=== PATIENT | female | born 1975 | race African-American/Black ===

== ENCOUNTER 2018-04-01 00:23 | Inpatient (IN) ==
[2018-04-01] MEDS ORDERED: NORCO-5 PO ONE (03:10)
[2018-04-01 03:49] LABS: BASO# 0.06 X1000 (0.0-0.2); BASO% 0.9 % (0.0-0.8); EOS# 0.59 X1000 (0.0-0.7); EOS% 8.9 % (0.0-10.0); HEMATOCRIT 43.3 % (37.0-47.0); HEMOGLOBIN 13.8 g/dL (12.0-16.0); IMM GRAN# 0.02 X1000 (0.0-0.04); IMM GRAN% 0.3 % (0.0-0.5); LYMPH# 2.09 X1000 (1.2-3.4); LYMPH% 31.4 % (20.5-51.1); MCH 28.5 PG (27-31); MCHC 31.9 g/dL (33-37); MCV 89.5 FL (81-99); MONO# 0.84 X1000 (0.11-0.59); MONO% 12.6 % (1.7-9.3); MPV 11.2 FL (7.4-10.4); NEUT# 3.05 X1000 (1.4-6.5); NEUT% 45.9 % (42.2-75.2); PLT 210 X1000 (130-400); RBC 4.84 XMIL (4.2-5.4); RDW 14.1 % (11.5-14.5); WBC 6.65 X1000 (4.8-10.8)
[2018-04-01 03:56] LABS: INR 0.91
[2018-04-01 03:57] LABS: PTT 29.9 Seconds (22.3-41.8)
[2018-04-01 03:59] LABS: D-DIMER 1.89 ug/mLFEU (0.0-0.52)
[2018-04-01 04:18] LABS: AGAP 13; ALB/GLOB RATIO 0.7; ALKALINE PHOSPHATASE 415 U/L (32-104); BUN 8 mg/dL (8-22); CALCIUM 8.8 mg/dL (8.8-10.2); CHLORIDE 106 mmol/L (98-107); COSMO 284; CREATININE 0.6 mg/dL (0.5-0.9); ESTIMATED GFR > 60; GLUCOSE 117 mg/dL (70-104); GOT 104 U/L (10-30); GPT 92 U/L (10-36); POTASSIUM 4.5 mmol/L (3.5-5.1); SODIUM 143 mmol/L (136-145); TCO2 24 mmol/L (25-35); TOTAL BILIRUBIN 0.95 mg/dL (0.20-1.00); TOTAL PROTEIN 9.6 g/dL (6.3-8.3)
[2018-04-01] MEDS ORDERED: ROCEPHIN 1 GM in NS 50 ML IV ONE (05:26)
[2018-04-01] MEDS ORDERED: ZITHROMAX 500 MG/NS 500 MG/250 ML IVPB IV ONE (05:26)
--- NOTE | 2018-04-01 06:11 | PROVIDER DOCUMENTATION ---
HPI-General Adult - General Chief Complaint: Chest Pain Stated Complaint: CHEST PAIN/SOB Time Seen by Provider: 04/01/18 03:00 Source: patient Allergies/Adverse Reactions: Patient Allergies Allergy/AdvReac Type Severity Reaction Status Date / Time No Known Allergies Allergy Verified 03/11/16 18:09 Home Medications: Home Medication List Medication Instructions Recorded Confirmed Last Taken Type Famotidine [Pepcid] 20 mg PO DAILY #20 tablet 03/11/16 04/01/18 11/17/16 Rx 20mg Ibuprofen [Motrin] 800 mg PO Q8H PRN PRN #20 tablet 03/11/16 04/01/18 03/31/18 Rx 800mg Carbamide Peroxide/Sea Water [[facility] 113 ml OT DIRECTED #1 combo..pkg 04/17/16 04/01/18 11/17/16 Rx Ear Wax Cleansing System] 113ml - History of Present Illness -Gen Adult Nature of Presenting Problems: Diffuse L sided CP starting yesterday that is worse with breathing. She also states mild SOB. No cough, body aches, chill or documented fever. No previous such episodes. Review of Systems - Adult - REVIEW OF SYSTEMS - ADULT Constitutional: reports: weight loss (mild, attributes to working nights.). denies: chills, fever, fatique, night sweats Ears, Nose, Mouth & Throat: denies: hearing loss, mouth/dental pain, mouth swelling, hoarseness, throat pain, throat swelling Cardiovascular: reports: no symptoms reported Respiratory: reports: see HPI Gastrointestinal: reports: no symptoms reported Genitourinary: reports: no symptoms reported Musculoskeletal: reports: no symptoms reported Integumentary: reports: no symptoms reported Neurological: reports: no symptoms reported Psychiatric: reports: no symptoms reported Endocrine: reports: no symptoms reported Hematologic/Lymphatic: reports: no symptoms reported Allergic/Immunologic: reports: no symptoms reported Past History - Adult - PAST MEDICAL HISTORY-ADULT Review of Records: reports: Nursing Assessment Review, Social history reviewed & non-contributory. Major Childhood Illnesses: reports: denies history Cardiovascular: reports: denies history Respiratory: reports: denies history Gastrointestinal: reports: denies history Obstetrical/Gynecological: reports: denies history Genitourinary: reports: denies history Musculoskeletal: reports: denies history Neurological: reports: denies history Endocrine/Immune: reports: denies history Other Conditions: reports: denies history - IMMUNIZATION STATUS Childhood Immunizations: See Nurse Assessment Flu Vaccine: See Nurse Assessment - FAMILY HISTORY Family History: reviewed, not pertinent Physical Exam-General - PHYSICAL EXAM-ADULT Initial Vital Signs Reviewed: Yes - CONSTITUTIONAL General Appearance: appears well, alert - EYES Eyes: PERRL/EOMI, pink conjunctivae - HEAD, EARS, NOSE, MOUTH & THROAT HENMT: normocephalic/atraumatic, moist mucous membranes, normal ENT inspection, pharynx normal. negative: pharyngeal erythema, tonsillar exudate - NECK Neck: non-tender, full range of motion, supple - RESPIRATORY Respiratory: chest non-tender, lungs clear, normal breath sounds, no pleuratic chest pain, no respiratory distress, no accessory muscle use - CARDIOVASCULAR Cardiovascular: normal peripheral pulses, regular rate, rhythm, no edema, no JVD - GASTROINTESTINAL (ABDOMEN) Abdominal Exam: normal bowel sounds, non tender, soft - LYMPHATIC Lymphatic: no adenopathy - MUSCULOSKELETAL Back Exam: normal inspection, no CVA tenderness, no vertebral tenderness Extremity: normal range of motion, non-tender, normal gait, no pedal edema, no calf tenderness, normal capillary refill - SKIN Integumentary: normal color, normal turgor, warm/dry - NEUROLOGIC Neurologic: grossly normal - PSYCHIATRIC Psych/Mental Status: normal mood/affect, oriented x 3 Progress - PLAN OF CARE/RESULTS Progress/Plan/Lab Results: Vital Signs - 8 hr 04/01/18 00:27 Temperature 98.0 F Pulse Rate 74 Respiratory Rate 18 Blood Pressure 155/96 O2 Sat by Pulse Oximetry 100 Laboratory Results - last 24 hr 04/01/18 04/01/18 04/01/18 03:15 03:15 03:15 WBC 6.65 RBC 4.84 Hgb 13.8 Hct 43.3 MCV 89.5 MCH 28.5 MCHC 31.9 L RDW Std Deviation 14.1 Plt Count 210 MPV 11.2 H Immature Gran % (Auto) 0.3 Neut % (Auto) 45.9 Lymph % (Auto) 31.4 [place] % (Auto) 12.6 H Eos % (Auto) 8.9 Baso % (Auto) 0.9 H Immature Gran # (Auto) 0.02 Neut # (Auto) 3.05 Lymph # (Auto) 2.09 [place] # (Auto) 0.84 H Eos # (Auto) 0.59 Baso # (Auto) 0.06 PT 13.0 INR 0.91 PTT (Actin FS) 29.9 D-Dimer, Quantitative 1.89 H Sodium 143 Potassium 4.5 Chloride 106 Carbon Dioxide 24 L Anion Gap 13 BUN 8 Creatinine 0.6 Estimated GFR/1.73 m2 > 60 BUN/Creatinine Ratio 13 Glucose 117 H Calculated Osmolality 284 Calcium 8.8 Total Bilirubin 0.95 AST 104 H ALT 92 H Alkaline Phosphatase 415 H Troponin T Total Protein 9.6 H Albumin 4.0 Globulin 5.6 Albumin/Globulin Ratio 0.7 04/01/18 03:15 WBC RBC Hgb Hct MCV MCH MCHC RDW Std Deviation Plt Count MPV Immature Gran % (Auto) Neut % (Auto) Lymph % (Auto) [place] % (Auto) Eos % (Auto) Baso % (Auto) Immature Gran # (Auto) Neut # (Auto) Lymph # (Auto) [place] # (Auto) Eos # (Auto) Baso # (Auto) PT INR PTT (Actin FS) D-Dimer, Quantitative Sodium Potassium Chloride Carbon Dioxide Anion Gap BUN Creatinine Estimated GFR/1.73 m2 BUN/Creatinine Ratio Glucose Calculated Osmolality Calcium Total Bilirubin AST ALT Alkaline Phosphatase Troponin T < 0.010 Total Protein Albumin Globulin Albumin/Globulin Ratio Orders Category Date Time Status CHEST-1 VIEW [RAD] Stat Exams 04/01/18 03:08 Taken CTA [CT ANGIOGRM PULMONARY ARTERIES] [CT] Stat Exams 04/01/18 04:16 Taken CBC WITH DIFF [HEME] Stat Lab 04/01/18 03:15 Completed COMPREHENSIVE METABOLIC PANEL [CHEM] Stat Lab 04/01/18 03:15 Completed D-DIMER [COAG] Stat Lab 04/01/18 03:15 Completed PROTIME WITH INR [COAG] Stat Lab 04/01/18 03:15 Completed PTT [COAG] Stat Lab 04/01/18 03:15 Completed TROPONIN T Stat Lab 04/01/18 03:15 Completed Azithromycin 500 mg/Ns [Zithromax 500 mg/Ns] Med 04/01/18 05:26 Active 500 mg in 250 ml IV NOW CefTRIAXONE [Rocephin] 1 gm Med 04/01/18 05:26 Discontinued 0.9% Sodium Chloride Inj [Ns] 50 ml IV NOW Hydrocodone/APAP 5 mg/325 mg [[place]-5] Med 04/01/18 03:10 Discontinued 1 each PO NOW ONE EKG [EKG] Stat Ther 04/01/18 00:31 Ordered Considerations include but not limited to: malignancy, pna, pulm fibrosis, sarcoidosis. CT reveals what appears to be chronic lung disease as well as B pna. She also has significant adenopathy. Case discussed with Dr Elena who admitted her. She was treated empirically for Community acquired PNA. Result Diagrams: 04/01/18 03:15 04/01/18 03:15 Departure - Departure Date of Disposition Decision: 04/01/18 Time of Disposition Decision: 06:10 DIAGNOSIS: Mediastinal adenopathy Pneumonia Qualifiers: Pneumonia type: due to unspecified organism Laterality: bilateral Lung location : unspecified part of lung Qualified Code(s): J18.9 - Pneumonia, unspecified organism Disposition: ADMITTED INPATIENT 09 Certified Medical Emergency: Emergent Condition: Fair - Critical Care Note This patient required my direct & personal management of CC.: No Attestation - Physician/ SHUKRI Attestation The physician spent face to face time with patient:: Yes Advanced Practice Provider documentation review:: Supervising physician onsite and consulted in the evaluation and care of this patient. The physician did have a face to face encounter with the patient.
--- NOTE | 2018-04-01 06:37 | Diag Imaging Result Doc PS360 ---
EXAM: CT ANGIOGRM PULMONARY ARTERIES HISTORY: SOB, ELEVATED D DIMER TECHNIQUE: CT chest with intravenous contrast. Pulmonary arterial protocol with MIP images. COMPARISON: None. FINDINGS: There are large calcified mediastinal and hilar lymph nodes as well as enlarged calcified axillary nodes. No thoracic aortic aneurysm or dissection. No cardiomegaly. Normal opacification of the pulmonary arteries and their major branches. There is bilateral bronchiectasis. There are infiltrates most prominent in the lower lungs. There may be an underlying cavity in the left lower lobe measuring over 5 cm. There are scattered pulmonary nodules measuring 1.3 cm. Several of these may contain internal calcification. Limited images through the upper abdomen reveal a prominent lymph nodes with calcification. IMPRESSION: 1.No pulmonary emboli 2.Enlarged calcified axillary, mediastinal, hilar, and upper abdominal adenopathy. This is usually due to sarcoidosis or tuberculosis. 3.Bilateral infiltrates with possible necrotizing pneumonia 4.Bronchiectasis 5.Small scattered pulmonary nodules which may contain calcification 6.A preliminary report was given at 5:17 AM. This exam was performed using automated exposure control, adjustment of mA or kV according to patient size, and/or use of iterative reconstruction technique. Electronically signed by Anderson Bella 04/01/2018 6:35 AM
[2018-04-01] MEDS ORDERED: DUONEB (A & A) INH PRN (07:04)
[2018-04-01] MEDS ORDERED: ZOFRAN IV PRN (07:04)
[2018-04-01] MEDS ORDERED: D5 1/2 NS 1,000 ML IV ONE (07:04)
--- NOTE | 2018-04-01 07:09 | Diag Imaging Result Doc PS360 ---
EXAM: CHEST-1 VIEW 04/01/2018 HISTORY: cp TECHNIQUE: AP portable at 0321 COMMENT: There is alveolar opacity in both lower lung gandhi. There are no previous studies. The heart size appears to be within normal limits. There are sclerotic changes in the humeral heads bilaterally suggesting ischemic necrosis. IMPRESSION: Bilateral bronchopneumonia plus minus pulmonary edema. 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 Electronically signed by Orlin Stiles 04/01/2018 7:07 AM
[2018-04-01] MEDS ORDERED: MAXIPIME 1 GM in NS 50 ML IV SCH (07:15)
[2018-04-01] MEDS ORDERED: SODIUM CHLORIDE 0.9% INJ SCH (07:15)
[2018-04-01] MEDS ORDERED: VANCOMYCIN IV PER PHARMACY MISC SCH (07:15)
--- NOTE | 2018-04-01 07:23 | EKG Report ---
Test Performed on : 04/01/2018 00:33:30 AM Test Reason : CP Blood Pressure : / mmHG Vent. Rate : 076 BPM Atrial Rate : 076 BPM P-R Int : 192 ms QRS Dur : 088 ms QT Int : 400 ms P-R-T Axes : 060 083 050 degrees QTc Int : 450 ms Normal sinus rhythm. Possible Left atrial enlargement Borderline ECG No previous ECGs available Unconfirmed Result
--- NOTE | 2018-04-01 08:14 | HISTORY AND PHYSICAL ---
CHIEF COMPLAINT: Chest pain. HISTORY OF PRESENT ILLNESS: A 42-year-old, -[place] female with no significant medical history presented to the emergency department with a chief complaint of left thoracic chest pain that has been going on for 1 day, exacerbated with breathing and when she moves , dual/sharp pain, 7 to 8/10 intensity associated with headache and chills. She denies fever. She denies nausea, vomiting, diarrhea, constipation. 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 She believes that is the reason why she has been losing 20 pounds in around 2 to 3 months. She states that she also has not been drinking sodas like she used to, and she still has a good appetite. In the emergency department, we found out that this patient's laboratory show an elevated D-dimer at 1.89 and also elevated AST, ALT, and alkaline phosphatase. We do not have previous LFT studies to compare. CT angiogram of the chest shows no pulmonary emboli but a large calcified axillary, mediastinal, and hilar and upper abdominal adenopathy that could be related to sarcoidosis or tuberculosis. Bilateral infiltrates and bronchiectasis with some cavitary lesions and also some scattered pulmonary nodules which may contain calcification. The patient will be admitted and placed in isolation. Pulmonary Department and Infectious Disease Department will be consulted. She will be placed on antibiotics p.r.n. breathing treatment. We will keep this patient n.p.o. for the possibility of bronchoscopy today. REVIEW OF SYSTEMS: This patient has been losing weight, around 20 pounds in 2 to 3 months but, apparently, she has been changing her eating habits, and she has been drinking sodas that much. She states that her appetite is good. The rest of the 14 points review of systems were reviewed. All of them negative except as per HPI. PAST MEDICAL HISTORY: Goiter treated with surgery a long time ago. Left cataract in the left eye. She cannot see through that eye. SOCIAL HISTORY: She denies smoking, drugs, and alcohol. She works in a [employer]. She denies any recent travel or sick contacts. PAST SURGICAL HISTORY: Laparoscopic cholecystectomy and partial thyroidectomy. She is not on any treatment at home like levothyroxine. FAMILY HISTORY: Positive for hypertension, diabetes in some of her brothers and mother with multiple myeloma. ALLERGIES: No known allergies. MEDICATIONS: None. VITAL SIGNS: Temperature 98, pulse 74, respiratory rate 18, blood pressure 155/ 96, oxygen saturation 100% on room air. PHYSICAL EXAMINATION: HEENT: Head normocephalic. No trauma. Left eye with cataract PERRL on the right. NECK: Supple. No JVD. Central trachea. CHEST: Bilateral mid thoracic area and lower thoracic area crepitus and rhonchi bilaterally. No wheezing. I do not hear any rales. ABDOMEN: Soft. There is no tenderness. Nontender, nondistended. No hepatosplenomegaly. EXTREMITIES: No edema. No clubbing. No cyanosis. NEUROLOGICAL: The patient is completely alert and oriented x3. No focal deficits. LABORATORY: WBC 6.6, hemoglobin 13.8, hematocrit 43.3, platelets 210,000. Sodium 143, potassium 4.5, chloride 106, bicarbonate 24. BUN 8, creatinine 0.6, glucose 117. Calcium 8.8. AST 104, ALT 92, alkaline phosphatase 115. ASSESSMENT AND PLAN: 1. Pneumonia, possible cavitary pneumonia with enlarged calcified axillary mediastinal hilar and upper abdominal adenopathy. Probably, this is related with sarcoidosis or even tuberculosis. She has no travel history. She will be placed on antibiotics, broad spectrum. Pulmonary Department will be consulted as well as Infectious Disease Department. P.r.n. breathing treatment. Her oxygen saturation has been stable without oxygen without oxygen supplementation. There is a possibility also of necrotizing pneumonia. 2. Elevated LFTs. She is not complaining of pain in that area, and there is no report of any problem before. I do not see any lesion in the CT scan of the thorax. We will monitor for now and probably we need to get gastroenterology department to evaluate this patient in the near future. 3. Elevated D-dimer. Negative pulmonary emboli. I will ask for a lower extremity ultrasound to complete the workup. 4. History of thrombocytopenia around 15 years ago that required a platelet transfusion. She does not know why she was thrombocytopenic, and she never followed that up. The platelets at this moment are normal. 5. History of thyroidectomy, probably partial. As per the patient, the gland was enlarged, I will ask for TSH level. She is not on any kind of treatment at home. cc: Jorge Gooden MD [facility]
--- NOTE | 2018-04-01 10:43 | CONSULTATION ---
DATE OF CONSULTATION: 04/01/2018 CONCLUSION: The patient is admitted to the hospital with an illness that consists of pulmonary infiltrates,some of which are possibly cavitary, and an associated enlarged calcified adenopathy involving the axilla, mediastinum, hilum, and abdomen. As pointed out by the radiologist, two possibilities from those findings would include sarcoidosis and tuberculosis. I would think that an acute bacterial pneumonia would be unlikely in view of the fact that the patient suddenly got ill in one day and she does not have a fever and she does not have a leukocytosis. RECOMMENDATIONS: I have ordered a QuantiFERON gold test and also an angiotensin converting enzyme as well. I agree with treating the patient with vancomycin and cefepime. I have increased the dose of cefepime to 2 g IV every 12 hours. DISCUSSION: The patient tells me that she came because yesterday, she had excruciating left-sided chest pain. It was worse with respiration and movement. She also had a cough but she does not produce any sputum. She told me that she does not have any fever. She apparently, in the past 2 to 3 months, has lost 20 pounds. She does not have night sweats. Laboratory studies thus far show a pulmonary arteriogram that shows no pulmonary emboli but it does show enlarged calcified axillary, mediastinal, hilar, abdominal adenopathy. It also showed bilateral infiltrates with possible cavitation to suggest a necrotizing pneumonia. The patient's chest x-ray shows bibasilar opacities. The patient's CBC shows a white count of 6650, hemoglobin 13.8, and platelet count 210,000. Creatinine is 0.6. GFR is greater than 60. Alkaline phosphatase is 415. PAST MEDICAL HISTORY/REVIEW OF SYSTEMS: Eyes and Ears: She denies any trouble hearing or seeing. Neck: No stiffness. Respiratory: See present illness. GI: The patient, as mentioned above, has lost weight. She told me that she does not have nausea, vomiting, or diarrhea. Genitourinary: No dysuria or flank pain. Bones, Joints, and Muscles: No joint swelling or muscle aching. Endocrine: The patient does not have diabetes. She did have removal of a goiter from her thyroid. Neurologic: The patient has not had any seizures or unilateral loss of motor or sensory function. Integument: No rashes. 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 She has had a tubal ligation. PREVIOUS HOSPITALIZATIONS AND OPERATIONS: She has had 5 labor and deliveries, a tubal ligation, a cholecystectomy, thyroid surgery to remove a goiter, and she has had cataract surgery. MEDICAL DISEASES: Negative for hypertension and diabetes. She did have a thyroid goiter removed. INFECTIOUS DISEASE HISTORY: Negative for pneumonia and UTI. Negative for exposure to TB. FAMILY HISTORY: Positive for diabetes mellitus, hypertension, and cancer. SOCIAL HISTORY: [place] She is . She has an outside dog as a pet. She does not smoke cigarettes, drink alcoholic beverages, or use illicit drugs. In addition to caring for family, she works at a [employer] and I believe she said also [employer]. ALLERGIES: The patient does not have any known allergies. MEDICATIONS AT HOME: Include carbamide peroxide/seawater, famotidine, and Motrin. PHYSICAL EXAMINATION: Vital Signs: Temperature is 98 degrees, pulse 80, respirations 16, blood pressure 120/83. The patient weighs 155 pounds. General: She appears to be a healthy young female. She is in no acute distress. Head, Eyes, Ears, Nose, and Throat: She can hear my spoken words and see near objects. She does not have any white patches on her tongue. Neck: No meningismus. Thorax: No increased AP diameter of the chest. Lungs: Clear to auscultation. Cardiovascular: Regular heart rate. Abdomen: Soft and nontender. Neurologic: The patient is alert. She can move her extremities. There is no tremor. Her memory as regarding her medical history appeared intact. Lymph Nodes: I did not feel any axillary or cervical adenopathy. Integument: No rash noted. Thank you for the consult. cc: Flakito Omalley MD
[2018-04-01] MEDS ORDERED: VANCOMYCIN 2 GM in NS 500 ML IV ONE (11:00)
[2018-04-01] MEDS: MORPHINE IV PRN ×2 (14:03→20:44)
[2018-04-01] MEDS: PROTONIX IV SCH (14:06)
[2018-04-01] MEDS: MAXIPIME 2 GM in NS 100 ML IV SCH (18:55)
[2018-04-01] MEDS: VANCOMYCIN 1.5 GM in NS 250 ML IV SCH (22:57)
[2018-04-02 07:03] LABS: BASO# 0.02 X1000 (0.0-0.2); BASO% 0.4 % (0.0-0.8); EOS# 0.26 X1000 (0.0-0.7); EOS% 4.6 % (0.0-10.0); HEMATOCRIT 39.6 % (37.0-47.0); HEMOGLOBIN 12.6 g/dL (12.0-16.0); IMM GRAN# 0.02 X1000 (0.0-0.04); IMM GRAN% 0.4 % (0.0-0.5); LYMPH# 1.72 X1000 (1.2-3.4); LYMPH% 30.1 % (20.5-51.1); MCH 28.3 PG (27-31); MCHC 31.8 g/dL (33-37); MONO# 0.61 X1000 (0.11-0.59); MONO% 10.7 % (1.7-9.3); MPV 10.8 FL (7.4-10.4); NEUT# 3.08 X1000 (1.4-6.5); NEUT% 53.8 % (42.2-75.2); PLT 202 X1000 (130-400); RBC 4.45 XMIL (4.2-5.4); WBC 5.71 X1000 (4.8-10.8)
[2018-04-02 07:08] LABS: INR 0.98; PROTIME 13.8 Seconds (11.0-16.0); PTT 28.7 Seconds (22.3-41.8)
[2018-04-02 07:14] LABS: AGAP 10; ALB/GLOB RATIO 0.6; ALBUMIN 3.3 g/dL (3.5-5.0); ALKALINE PHOSPHATASE 323 U/L (32-104); BUN 7 mg/dL (8-22); CALCIUM 8.8 mg/dL (8.8-10.2); CHLORIDE 103 mmol/L (98-107); COSMO 270; CREATININE 0.6 mg/dL (0.5-0.9); ESTIMATED GFR > 60; GLUCOSE 91 mg/dL (70-104); GOT 80 U/L (10-30); GPT 83 U/L (10-36); MAGNESIUM 2.1 mg/dL (1.5-2.7); POTASSIUM 4.1 mmol/L (3.5-5.1); SODIUM 136 mmol/L (136-145); TCO2 23 mmol/L (25-35); TOTAL BILIRUBIN 1.16 mg/dL (0.20-1.00); TOTAL PROTEIN 8.9 g/dL (6.3-8.3)
--- NOTE | 2018-04-02 08:46 | PULMONOLOGY CONSULTATION ---
DATE: 04/01/2018 REQUESTING PHYSICIAN: Dr. Elena. REASON FOR CONSULTATION: Cavitary pneumonia. HISTORY OF PRESENT ILLNESS: Ms. Frausto is a 42-year-old black female, never smoker, who reports that she was feeling well except for unexplained weight loss until New Year's Julia when she developed some left-sided chest pain. She took some Motrin and it resolved. The pain returned and she presented to the emergency room early this morning. A CT pulmonary angiogram was performed which revealed extensive pathology in the chest including multiple calcified axillary mediastinal hilar and upper abdominal lymph nodes, bilateral infiltrates, and bronchiectasis. Patient denies fevers or chills. Despite extensive bronchiectasis, she denies significant sputum production. She denies hemoptysis. She denies recent travel. She denies exposure to tuberculosis. 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 She denies exposure to birds. The patient does report a history of early onset cataract and glaucoma in her early 20s. She was evaluated at the eye clinic and did require cataract removal, LASIK surgery and laser surgery. She has lost the vision in her left eye. She is unsure as to the etiology of her early onset eye disease. On careful questioning, she was evaluated by Dr. Louis at [facility] at [facility] and he is a practicing drum dyeing machine operator that facility. When the terms tuberculosis, histoplasmosis and sarcoid were discussed, her believes that the term sarcoidosis was mentioned. PAST MEDICAL HISTORY/PROBLEM LIST: 1. Loss of the left eye in her 20s due to a cataract and glaucoma disease. 2. Possible sarcoidosis as outlined above. 3. History of goiter. 4. Status post laparoscopic cholecystectomy. 5. Status post tubal ligation. 6. Status post 5 vaginal deliveries. SOCIAL HISTORY: She is a nonsmoker. No alcohol use. FAMILY HISTORY: Negative for tuberculosis. Father with lung cancer and he was a smoker. Mother has myeloma. REVIEW OF SYSTEMS: Notable for left-sided chest pain, cough, mild dyspnea. She denies fevers or hemoptysis. Review of systems is otherwise negative. PHYSICAL EXAMINATION: GENERAL: Reveals a healthy appearing black female who is resting comfortably and in no distress. VITAL SIGNS: She is afebrile. Blood pressure 130/85, heart rate 92, respiratory rate 16 and unlabored. Oxygen saturation 98%. HEENT: Right pupil is equal and reactive. Left pupil does not react. Oropharynx is clear. NECK: Supple. CHEST: Reveals faint crackles and rhonchi bilaterally but most prominent in the bases. CARDIAC: S1, S2 without murmurs or rubs. ABDOMEN: Soft and without hepatosplenomegaly. EXTREMITIES: Without edema. LABORATORIES: White blood count 6.65, hemoglobin 13.8, platelet count 210,000. Sodium 143, potassium 4.5, chloride 106, bicarbonate 24, BUN 8, creatinine 0.6. IMPRESSION: 42-year-old with extensive mediastinal adenopathy with diffuse calcification, bronchiectasis, pleuritic chest pain, weight loss, and probable sarcoidosis as outlined in the HPI. The changes in the chest appear chronic and clearly have not occurred recently. I suspect that the pleuritic chest pain she is having is likely related to bronchiectasis with an infection in the lung base. RECOMMENDATIONS: 1. Continue broad spectrum antibiotics covering gram-negative organisms predominantly as you are doing. 2. Attempt to collect sputum for C and S. 3. Agree with evaluation for tuberculosis, sarcoidosis, and histoplasmosis but with her history provided, this most likely represents sarcoidosis. 4. Attempt to obtain prior clinic records from Dr. Kiko Louis from [facility]. cc: Moody Hope MD
[2018-04-02] MEDS: MAXIPIME 2 GM in NS 100 ML IV SCH ×2 (09:58→23:14)
[2018-04-02] MEDS: PROTONIX IV SCH (10:02)
[2018-04-02] MEDS: VANCOMYCIN 1.5 GM in NS 250 ML IV SCH (15:11)
[2018-04-02] MEDS: NORCO-5 PO PRN (15:17)
--- NOTE | 2018-04-02 15:49 | PROGRESS NOTE ---
DATE: 04/02/2018 SUBJECTIVE: The patient reports breathing better. She is not requiring any oxygen supplementation. She denies any fever or chills, or chest pain. OBJECTIVE: Vital Signs: Temperature 97.6 degrees, heart rate 86, respiratory rate 19, blood pressure 126/83, O2 saturation 98% on room air. General examination: This is a 42-year-old, female lying in bed, in no acute distress. HEENT: Head is normocephalic and atraumatic. Neck: No JVD noted. No carotid bruits. No lymphadenopathy. No thyromegaly. Cardiovascular: S1, S2 heard. No murmurs, gallops, or rubs. Regular rate and rhythm. Respiratory: There are minimal coarse breath sounds in the right pulmonary base. The patient is not using any accessory muscles or having work of breathing. Abdomen: Soft. Nontender to palpation. Bowel sounds present. No organomegaly. Extremities: No clubbing, cyanosis, or edema. Peripheral pulses present in both legs. Neurological: The patient is alert and oriented x3. Moves 4 extremities. LABORATORY DATA: Reviewed. ASSESSMENT AND PLAN: 1. Cavitary necrotizing pneumonia. The patient is on antibiotics, in this case vancomycin and cefepime. The patient clinically is doing fine even though the report of the CT scan said necrotizing pneumonia. She is not developing any fever. She does not have any elevated white cell count. She is not requiring any oxygen supplementation. She was told that she has sarcoidosis approximately 20 years ago as per a doctor at [facility]. Dr. Hope is trying to get some records from there. At this point, it is most likely sarcoidosis, but considering that we do not have enough information to prove it, I would definitely prefer to continue with antibiotics. 2. History of thrombocytopenia. The labs shows normal platelet count. Will continue to monitor CBC. 3. History of thyroidectomy. We have checked a TSH and it is okay. Will continue to monitor. 4. Elevated white cell count. Will continue to monitor CBC daily. DISPOSITION: Will continue to follow the lead from Pulmonary and ID. cc: MD SIENNA Rollins
[2018-04-03] MEDS: VANCOMYCIN 1.5 GM in NS 250 ML IV SCH (00:07)
[2018-04-03] MEDS: NORCO-5 PO PRN (00:10)
--- NOTE | 2018-04-03 05:28 | PULMONOLOGY PROGRESS NOTE ---
DATE: 04/02/2018 SUBJECTIVE: Clinically, patient reports she feels better. She reports her pleuritic pain has resolved. She has a weak relatively ineffective cough. OBJECTIVE: Vital signs: The patient has been afebrile for the last 24 hours. BP 126/83, heart rate 86, respiratory rate 19, oxygen saturation 98%. HEENT: Pupils are equal and reactive. Oropharynx is clear. Neck: Supple. Chest: Reveals coarse breath sounds in the lung bases. Cardiac: S1, S2. Abdomen: Soft without hepatosplenomegaly. Extremities: Without edema. LABORATORIES: No microbiology data available. Induce sputum ordered but not obtained. White blood count 5.7, hemoglobin 12.6, platelet count 202,000. Chemistry: Sodium 136, potassium 4.1, chloride 103, bicarbonate 23, BUN 7, and creatinine 0.6. IMPRESSION: A 42-year-old with extensive parenchymal disease in the lungs likely related to chronic long-standing sarcoidosis as outlined in the initial history of present illness. The patient presented with pleurisy and areas of fluid-filled abscess versus pneumonia in the left base. I suspect this represents either a community-acquired pneumonia or this represents an exacerbation of bronchiectasis. The patient has extensive cavitary disease with minimal symptoms but does have a slightly suppressed cough. RECOMMENDATIONS: 1. Continue antibiotics. If no specific pathogen can be identified, would recommend 2-3 week course of oral antibiotics covering Pseudomonas. 2. Continue bronchial hygiene. 3. Await for records from [facility]. cc: Moody Hope MD
[2018-04-03] MEDS: PROTONIX IV SCH (06:05)
--- NOTE | 2018-04-03 07:27 | INFECTIOUS DISEASE PROGRESS NO ---
DATE: 04/02/2018 PRESENT ILLNESS: Ms. Frausto has extensive mediastinal adenopathy with infiltrates and a possible necrotizing pneumonia. The possibility of sarcoidosis or tuberculosis is being explored. MEDICATIONS: She is on day 1 of IV vancomycin per pharmacy dosing and cefepime 2 g IV every 12 hours. PHYSICAL EXAMINATION: Vital Signs: Temperature 97.6 degrees, pulse rate 86, respiratory rate 19, blood pressure 126/83, and O2 saturations are 98% on room air. General: This is a fairly healthy- appearing middle-aged female. She is lying in the bed currently in no acute distress. HEENT: Atraumatic and normocephalic. Oral mucous membranes are pink and moist. Conjunctivae are pink. There is a cataract noted to her left eye. Neck: Supple. Trachea is midline. Lungs: Clear to the upper lobes and scattered rales and rhonchi in the middle lobe and bibasilar. Cardiovascular: Heart rate and rhythm are regular. Normal sinus rhythm on the monitor. Pedal and radial pulses are palpable bilaterally. No edema noted. Abdomen: Soft, round and nontender. Bowel sounds are active. Neurologic: She is awake, alert, oriented, and able to move all extremities independently. LABORATORY AND X-RAY: Today, her white count is 5.71, hemoglobin 12.6, and platelet count 202,000. Creatinine is 0.6. Estimated GFR is greater than 60. AST 80. ALT 83 , alkaline phosphatase 323. No imaging reports today. ASSESSMENT AND PLAN: Ms. Frausto is being treated for pneumonia with a possible cavitary, necrotizing component. She has mediastinal adenopathy as well with investigation for the possibility of sarcoidosis or tuberculosis. At this point, she had several tests for which we are awaiting the final results. Until those return, we will continue her on vancomycin and cefepime as ordered. I have talked to her about trying to collect a sputum. However, at this point she denies any cough or sputum. These plans have been discussed with and recommended by Dr. Omalley. COMORBIDITIES: for Ms. Frausto include left eye cataract, transaminitis, which is improving, and a previous history of thrombocytopenia. Dictated by GLORIA Elliott for Flakito Omalley MD This chart was documented by, GLORIA Elliott and accurately reflects the services performed, treatment plan and medical decisions as attested by the providers signature Flakito Omalley MD. cc: Flakito Omalley MD MTDD
[2018-04-03] MEDS ORDERED: ZOFRAN PO SCH (09:30)
--- NOTE | 2018-04-03 12:34 | Extremity Venous Study ---
PROCEDURE NAME: Venous U/S Bilateral Legs - 04/01/2018 REQUESTING PHYSICIAN: Dr. Elena LIBERAL ARTS TEACHER: [place] INDICATIONS: 1. Chest pain. 2. Shortness of breath. 3. Elevated D-dimer. EQUIPMENT: [employer] Vivid E9 ultrasound system with a 9LD transducer. FINDINGS: Images of the bilateral lower extremity venous systems were obtained in both sagittal and transverse planes. Doppler was used to evaluate veins for spontaneity, phasicity, respiratory excursion, and digital augmentation. RESULTS: Normal venous compression. Reflex noted in the bilateral common femoral veins, but no obvious superficial or deep venous thrombosis noted. INTERPRETATION: Reflux noted in the bilateral common femoral veins. cc: MD Jorge Alvarado MD
[2018-04-03] MEDS ORDERED: MAXIPIME 2 GM in NS 100 ML IV SCH (13:00)
[2018-04-03 13:38] VITALS: BP 135/87
--- NOTE | 2018-04-03 13:40 | INFECTIOUS DISEASE PROGRESS NO ---
DATE: 04/03/2018 PRESENT ILLNESS: Ms. Frausto has mediastinal adenopathy with necrotizing pneumonia. There is a suspected sarcoidosis. Testing is also incomplete for the possibility of tuberculosis or histoplasmosis, which are less likely. MEDICATIONS: She is on day 2 of IV vancomycin per pharmacy dosing and cefepime 2 g IV every 12 hours. PHYSICAL EXAMINATION: Vital Signs: Temperature is 97.6, pulse rate 79, respiratory rate 19, blood pressure 126/78, O2 saturation 96% on room air. General: This is a fairly healthy-appearing, middle-aged female. She is sitting up in bed in no acute distress. HEENT: Atraumatic, normocephalic. Oral mucous membranes are pink and moist. Conjunctivae are pink. She has a left eye cataract. Neck supple. Trachea is midline. Cardiovascular: Heart rate and rhythm are regular. Normal sinus rhythm on the monitor. Radial and pedal pulses are palpable bilaterally. No edema noted. Respiratory: Lung sounds are clear in the upper lobes with rales noted to the middle lobe and bases bilaterally. Abdomen is soft, round, nontender. Bowel sounds are active. Neurologic: She is awake, alert, oriented and can ambulate independently without deficits. LABORATORY AND X-RAY: Today, her angiotensin-converting enzyme is 138. Her serum IEP shows an elevated IgG of 2346 and an IgA of 480. Other tests for histoplasmosis and QuantiFERON for TB are still pending. No imaging reports today. ASSESSMENT AND PLAN: Ms. Frausto is feeling much better. Denies any chest pains. She has been afebrile without any leukocytosis. There is pneumonia, and Dr. Omalley has spoken with Dr. Hope who agrees with sending her home with oral antibiotics for Pseudomonas coverage. Two prescriptions have been put on her chart for Augmentin 875mg every 12 hours and Cipro 500mg every 12 hours for a total of 3 weeks, at which point, Dr. Hope will follow up with the patient in [address] Hope will also follow the patient's other tests which have yet to be resulted. These plans have been discussed with and recommended by Dr. Omalley. COMORBIDITIES: A possible history of sarcoidosis and thrombocytopenia. Dictated by GLORIA Elliott for Flakito Omalley MD This chart was documented by, GLORIA Elliott and accurately reflects the services performed, treatment plan and medical decisions as attested by the providers signature Flakito Omalley MD. cc: Flakito Omalley MD [facility]
--- NOTE | 2018-04-05 18:40 | DISCHARGE SUMMARY ---
ADMISSION DATE: 04/01/2018 DISCHARGE DATE: 04/03/2018 DISCHARGE DIAGNOSES: 1. Pneumonia, possible cavitary pneumonia. 2. Transaminitis. 3. History of thrombocytopenia. 4. History of sarcoidosis. CONSULTATIONS: 1. Dr. Flakito Omalley from ID. 2. Dr. Moody Hope from Pulmonary PROCEDURES: 1. CT angio of the chest showed no pulmonary emboli, enlarged calcified axillary mediastinal, hilar and upper abdominal adenopathy that is usually seen in sarcoidosis or tuberculosis with bilateral infiltrates with possible necrotizing pneumonia and bronchiectasis on small scattered pulmonary nodules. 2. Venous Doppler of both lower extremities to look for DVT was negative. HOSPITAL COURSE: This is a 42-year-old female who presented to the emergency department for a chief complaint left thoracic chest pain so for suspicion for pulmonary embolism we have done CT angio of the chest with results as above. So, for possible pneumonia, necrotizing pneumonia she was admitted to the hospital. She was placed on broad-spectrum antibiotics. Pulmonary and ID has been consulted. Patient actually even though the imaging showed pneumonia, her white cell count was normal. She was not spiking any fever, she was not tachycardic, she was not requiring any oxygen supplementation, so we kept this patient for 2 days of antibiotics. Day of discharge we coordinated with Dr. Hope and Dr. Omalley. He was okay to send her with oral antibiotics and Dr. Hope is going to follow her in the office for possible sarcoidosis. It is important to remark that she has been told in the past about this diagnosis, but apparently for some reason she did not follow up with any doctor. At any rate, we are going to discharge this patient in stable condition with followup with Pulmonary in a couple weeks. DISCHARGE PHYSICAL EXAMINATION: Vital Signs: Temperature 97.6, heart rate 85, respiratory rate 19, blood pressure 135/87, O2 sat 98% on room air. General: This is a 42-year-old female lying in bed in no acute distress. HEENT: Head is normocephalic, atraumatic. Neck: No JVD noted. No carotid bruits. No lymphadenopathy. No thyromegaly. Cardiovascular: S1, S2 heard. No murmurs, gallops or rubs. Regular rate and rhythm. Respiratory: Clear bilaterally to auscultation. No work of breathing or using accessory muscles. Abdomen: Soft, nontender to palpation. Bowel sounds present. No organomegaly. Extremities: No clubbing, cyanosis or edema. Peripheral pulses present in both legs. Neurologic: Patient alert oriented x 3. Moves 4 extremities. DISCHARGE DISPOSITION: Home to self-care. LIST OF MEDICATIONS: 1. Augmentin 7.5 mg 1 tablet p.o. b.i.d. 2. Ciprofloxacin 500 mg 1 tablet p.o. q.12. 3. [place] 5 one tablet p.o. every 4 hours as needed for pain. 4. Famotidine 20 mg p.o. daily. FOLLOWUP: Follow up with Dr. Hope in 2 weeks. cc: Alfonso De Leon MD
== END 2018-04-03 16:13 | disposition home or self-care (01) | DRG 190 ==
LOC: ED 00:23 → SUATTDRO 00:24 → EDIPHOLD 00:24 → 3N 08:31
PROVIDERS: ATTEND Internal Medicine
CPT/HCPCS: 71010; 71045; 71275; 80053; 82164; 82784; 82787; 83735; 84155; 84165; 84443; 84484; 85025; 85379; 85610; 85730; 86334; 86480; 86698; 93005; 93970; 94640; 94761; A9270; C9113; J0456; J0692; J0696; J2270; J3370; J7040; J7050; Q9967; S0164

== ENCOUNTER 2018-08-14 18:01 | Inpatient (IN) ==
--- NOTE | 2018-08-14 18:55 | Diag Imaging Result Doc PS360 ---
EXAM: CHEST-2 VIEWS 08/14/2018 HISTORY: hx sarcodosis recent pneumonia cough TECHNIQUE: PA and lateral chest COMMENT: There is a large pneumothorax on the left with near complete collapse of the left lung. There is coarse opacity throughout much of the right lower lobe and middle lobe. This was also present at the time the previous study of 08/03/2018. The pneumothorax was not previously present. IMPRESSION: Large pneumothorax on the left which may be under tension. Complete collapse of the left lung. Pneumonia plus minus pulmonary fibrosis bilaterally. The findings were discussed with Baldo Sands MD at 08/14/2018 6:52 PM. Electronically signed by Orlin Stiles 08/14/2018 6:52 PM
[2018-08-14] MEDS ORDERED: XYLOCAINE 1% INJ ONE (18:59)
--- NOTE | 2018-08-14 19:22 | PROVIDER DOCUMENTATION ---
HPI-Respiratory General - General Chief Complaint: Cough Stated Complaint: SOB Time Seen by Provider: 08/14/18 18:55 Source: patient Allergies/Adverse Reactions: Patient Allergies Allergy/AdvReac Type Severity Reaction Status Date / Time No Known Allergies Allergy Verified 07/06/18 12:33 Home Medications: Home Medication List Medication Instructions Recorded Confirmed Last Taken Type NK [No Home Medications] 08/14/18 08/14/18 Unknown History - History of Present Illness-Resp Nature of Presenting Problem: Patient is a 42 year old black female with history of sarcoidosis and pneumonia complaining of increasing sob since yesterday. Denies fever. Review of Systems - Adult - REVIEW OF SYSTEMS - ADULT Constitutional: denies: chills, fever Eyes: reports: no symptoms reported Ears, Nose, Mouth & Throat: reports: no symptoms reported Cardiovascular: reports: see HPI Respiratory: reports: cough, pleurisy, shortness of breath Gastrointestinal: reports: no symptoms reported Genitourinary: reports: no symptoms reported Musculoskeletal: reports: no symptoms reported Integumentary: reports: no symptoms reported Neurological: reports: no symptoms reported Psychiatric: reports: no symptoms reported Endocrine: reports: no symptoms reported Hematologic/Lymphatic: reports: no symptoms reported Allergic/Immunologic: reports: no symptoms reported Past History - Adult - PAST MEDICAL HISTORY-ADULT Review of Records: reports: Old Records Reviewed, Nursing Assessment Review, Medications Reviewed, Social history reviewed & non-contributory. Major Childhood Illnesses: reports: denies history Cardiovascular: reports: denies history Respiratory: reports: denies history Gastrointestinal: reports: denies history Obstetrical/Gynecological: reports: denies history Genitourinary: reports: denies history Musculoskeletal: reports: denies history Neurological: reports: denies history Endocrine/Immune: reports: other (sarcoid) Other Conditions: reports: denies history - IMMUNIZATION STATUS Childhood Immunizations: See Nurse Assessment Flu Vaccine: See Nurse Assessment - FAMILY HISTORY Family History: reviewed, not pertinent Physical Exam-General - PHYSICAL EXAM-ADULT Initial Vital Signs Reviewed: Yes - CONSTITUTIONAL General Appearance: alert, mild distress - EYES Eyes: other (clear) - HEAD, EARS, NOSE, MOUTH & THROAT HENMT: moist mucous membranes - NECK Neck: supple - RESPIRATORY Respiratory: no accessory muscle use, decreased breath sounds (left side) - CARDIOVASCULAR Cardiovascular: tachycardia - GASTROINTESTINAL (ABDOMEN) Abdominal Exam: non tender, soft - LYMPHATIC Lymphatic: no adenopathy - MUSCULOSKELETAL Back Exam: normal inspection, no CVA tenderness Extremity: normal range of motion, non-tender Peripheral Pulses: radial (R): 2+, radial (L): 2+ - SKIN Integumentary: normal color, normal turgor - NEUROLOGIC Neurologic: grossly normal - PSYCHIATRIC Psych/Mental Status: anxious Progress - PLAN OF CARE/RESULTS Progress/Plan/Lab Results: Vital Signs - 8 hr 08/14/18 18:07 08/14/18 19:45 08/14/18 19:50 Temperature 98 F 98.5 F Pulse Rate 123 H 115 H 116 H Respiratory Rate 19 24 24 Blood Pressure 157/88 153/110 151/110 O2 Sat by Pulse Oximetry 97 96 98 08/14/18 19:55 08/14/18 20:05 08/14/18 20:15 Temperature 98.3 F Pulse Rate 107 H 111 H 106 H Respiratory Rate 22 22 22 Blood Pressure 143/102 138/105 137/106 O2 Sat by Pulse Oximetry 100 99 100 08/14/18 20:35 08/14/18 21:00 08/14/18 21:18 Temperature Pulse Rate 104 H 107 H 108 H Respiratory Rate 22 22 24 Blood Pressure 147/99 145/103 145/105 O2 Sat by Pulse Oximetry 99 99 99 08/14/18 22:00 Temperature Pulse Rate 102 H Respiratory Rate 24 Blood Pressure 137/95 O2 Sat by Pulse Oximetry 98 Laboratory Results - last 24 hr 08/14/18 08/14/18 19:15 20:15 WBC 7.80 RBC 4.76 Hgb 13.3 Hct 41.1 MCV 86.3 MCH 27.9 MCHC 32.4 L RDW Std Deviation 14.7 H Plt Count 220 MPV 11.1 H Immature Gran % (Auto) 0.1 Neut % (Auto) 63.7 Lymph % (Auto) 23.3 [place] % (Auto) 10.0 H Eos % (Auto) 2.4 Baso % (Auto) 0.5 Immature Gran # (Auto) 0.01 Neut # (Auto) 4.96 Lymph # (Auto) 1.82 [place] # (Auto) 0.78 H Eos # (Auto) 0.19 Baso # (Auto) 0.04 Sodium 141 Potassium 3.7 Chloride 103 Carbon Dioxide 25 Anion Gap 13 BUN 8 Creatinine 0.5 Estimated GFR/1.73 m2 > 60 BUN/Creatinine Ratio 16 Glucose 93 Calculated Osmolality 279 Calcium 8.8 Total Bilirubin 1.20 H AST 65 H ALT 50 H Alkaline Phosphatase 386 H Total Protein 8.7 H Albumin 3.7 Globulin 5.0 Albumin/Globulin Ratio 1.0 Orders Category Date Time Status Admit - [facility] Routine AdmDCTranf 08/14/18 21:57 Active Activity - Strict Bedrest ORDERED Care 08/14/18 21:57 Active Cardiac Monitoring DIRECTED Care 08/14/18 19:31 Active Consent for Test/Procedure DIRECTED Care 08/14/18 18:58 Active Resuscitation Status Routine Care 08/14/18 21:57 Ordered Vital Signs Order Q 4-HR ASSESS Care 08/14/18 21:57 Active Z-Document. for Tele Applied ORDERED Care 08/14/18 21:59 Active NPO Diet 08/14/18 21:59 Active CHEST-2 VIEWS [RAD] Stat Exams 08/14/18 18:14 Completed CHEST/ABD TUBE PLACEMENT [RAD] Stat Exams 08/14/18 19:56 Completed BLOOD CULTURE [BLDCUL] Stat Lab 08/14/18 19:44 Results CBC WITH ELECTRONIC DIFF [HEME] Stat Lab 08/14/18 19:15 Completed CMP [COMPREHENSIVE METABOLIC PANEL] [CHEM] Stat Lab 08/14/18 20:15 Completed 0.9% Sodium Chloride Inj [Ns] 1,000 ml Med 08/14/18 19:31 Discontinued .ROUTE As directed 0.9% Sodium Chloride Inj [Ns] 1,000 ml Med 08/14/18 22:20 Active IV 999 mls/hr Levofloxacin 750 mg/D5w [Levaquin 750 mg/D5w] Med 08/14/18 19:29 Discontinued 750 mg in 150 ml IV NOW Lidocaine 1% Pf [Xylocaine-Mpf 1%] Med 08/14/18 19:47 Discontinued 30 ml .ROUTE .STK-MED ONE Lidocaine 1% [Xylocaine 1%] Med 08/14/18 18:59 Discontinued 20 ml INJ NOW ONE Midazolam [Versed] Med 08/14/18 19:23 Discontinued 2.5 mg IV NOW ONE Morphine Med 08/14/18 21:57 Active 2 mg IV Q2H PRN PRN Morphine Med 08/14/18 19:29 Discontinued 4 mg IV NOW ONE Ondansetron [Zofran] Med 08/14/18 19:28 Discontinued 4 mg .ROUTE .STK-MED ONE Ondansetron [Zofran] Med 08/14/18 19:30 Discontinued 4 mg IV NOW ONE Ondansetron [Zofran] Med 08/14/18 21:57 Active 4 mg IV Q4H PRN PRN Chest Tube Tray Stat Oth 08/14/18 19:24 Active Oxygen Device Stat Oth 08/14/18 19:06 Active Oxygen Device Stat Oth 08/14/18 19:24 Active Pulse Oximetry Stat Oth 08/14/18 19:31 Active Telemetry [OM.EQ] Routine Oth 08/14/18 21:57 Active EKG [EKG] Stat Ther 08/14/18 19:31 Ordered Transfer/Admit Order [TRANSFER] Routine Transfer 08/14/18 21:59 Ordered Result Diagrams: 08/14/18 19:15 08/14/18 20:15 - REASSESSMENT Reassessment #1 Time Reassessed: 21:45 Status: improving Reassessment Comment: nonlabored respirations, left lung is reexpanded on cxr - EKG 1 Time of EKG reading by physician:: 21:32 EKG Read and Signed by:: Kiko Spence Rate: 104 Rhythm: sinus tach QRS: normal MO Interval: normal Comments: no STEMI - CONSULTS/PCP/HOSPITALIST Notification #1 *Consult/PCP/Hospitalist*: Dr. Merlos, surgeon industrial controller Time Discussed: 20:00 Reason/Comments: admit to hospitalist at [facility] Consult Disposition: Admit #2 Consult: Dr. Torres,[facility] hospitalist Reason/Comments: paged at [phone], no reply at [phone] Procedures - CHEST TUBE Left Mid-Axillary Chest Consent Form Signed?: Yes Time-Out Verification Completed?: Yes Size of [place] Tube (cm): 24 Anesthetic: 1%, Lidocaine/Xylocaine Volume of Anesthesia (ml's): 8 Katz of Air Brule: Yes Connected to Wall Suction?: Yes Tube Sutured to Skin: Yes Placement Verified by XRAY?: Yes Departure - Departure Date of Disposition Decision: 08/14/18 Time of Disposition Decision: 22:33 DIAGNOSIS: Spontaneous pneumothorax, Sarcoidosis Disposition: ADMITTED INPATIENT 09 Certified Medical Emergency: Emergent Condition: Stable Referrals and Follow-Ups: None,PCP [Primary Care Provider] - - Critical Care Note This patient required my direct & personal management of CC.: Yes Total Time (mins): 61 Critical Care Statement: This patient required my direct personal management to treat or rule out processes, the absence of which, could potentiallly result in sudden, clinically significant life or limb threatening deterioration. Attestation - Physician/ SHUKRI Attestation Patient care was provided by Advanced Practice Provider:: No The physician spent face to face time with patient:: Yes Advanced Practice Provider documentation review:: Supervising physician onsite and consulted in the evaluation and care of this patient. The physician did have a face to face encounter with the patient.
[2018-08-14] MEDS ORDERED: VERSED IV ONE (19:23)
[2018-08-14] MEDS ORDERED: ZOFRAN ONE (19:28)
[2018-08-14] MEDS ORDERED: MORPHINE IV ONE (19:29)
[2018-08-14] MEDS ORDERED: LEVAQUIN 750 MG/D5W 750 MG/150 ML IVPB IV ONE (19:29)
[2018-08-14] MEDS ORDERED: ZOFRAN IV ONE (19:30)
[2018-08-14] MEDS ORDERED: NS 1,000 ML ONE (19:31)
[2018-08-14 19:40] LABS: BASO# 0.04 X1000 (0.0-0.2); BASO% 0.5 % (0.0-0.8); EOS# 0.19 X1000 (0.0-0.7); EOS% 2.4 % (0.0-10.0); HEMATOCRIT 41.1 % (37.0-47.0); HEMOGLOBIN 13.3 g/dL (12.0-16.0); IMM GRAN# 0.01 X1000 (0.0-0.04); IMM GRAN% 0.1 % (0.0-0.5); LYMPH# 1.82 X1000 (1.2-3.4); LYMPH% 23.3 % (20.5-51.1); MCH 27.9 PG (27-31); MCHC 32.4 g/dL (33-37); MCV 86.3 FL (81-99); MONO# 0.78 X1000 (0.11-0.59); MPV 11.1 FL (7.4-10.4); NEUT# 4.96 X1000 (1.4-6.5); NEUT% 63.7 % (42.2-75.2); PLT 220 X1000 (130-400); RBC 4.76 XMIL (4.2-5.4); RDW 14.7 % (11.5-14.5)
[2018-08-14] MEDS ORDERED: XYLOCAINE-MPF 1% ONE (19:47)
--- NOTE | 2018-08-14 20:17 | Diag Imaging Result Doc PS360 ---
EXAM: CHEST/ABD TUBE PLACEMENT 08/14/2018 HISTORY: Chest tube placement TECHNIQUE: AP chest at 2019 COMMENT: The large pneumothorax which was previously present at 1740 has diminished considerably and there is no longer shift the mediastinum to the right. There is still considerable atelectasis particularly in the lingula. The right lung is actually not as well-expanded as on the original film although the atelectasis over the right base has apparently improved. IMPRESSION: Improving left pneumothorax and atelectasis. Electronically signed by Orlin Stiles 08/14/2018 8:15 PM
[2018-08-14 20:36] LABS: AGAP 13; ALBUMIN 3.7 g/dL (3.5-5.0); ALKALINE PHOSPHATASE 386 U/L (32-104); BUN 8 mg/dL (8-22); CALCIUM 8.8 mg/dL (8.8-10.2); CHLORIDE 103 mmol/L (98-107); COSMO 279; CREATININE 0.5 mg/dL (0.5-0.9); ESTIMATED GFR > 60; GLUCOSE 93 mg/dL (70-104); GOT 65 U/L (10-30); GPT 50 U/L (10-36); POTASSIUM 3.7 mmol/L (3.5-5.1); SODIUM 141 mmol/L (136-145); TCO2 25 mmol/L (25-35); TOTAL PROTEIN 8.7 g/dL (6.3-8.3)
[2018-08-14] MEDS ORDERED: MORPHINE IV PRN (21:57)
[2018-08-14] MEDS ORDERED: ZOFRAN IV PRN (21:57)
[2018-08-14] MEDS ORDERED: NS 1,000 ML IV ONE (22:20)
--- NOTE | 2018-08-14 22:51 | EKG Report ---
Test Performed on : 08/14/2018 9:31:36 PM Test Reason : pain Blood Pressure : / mmHG Vent. Rate : 104 BPM Atrial Rate : 104 BPM P-R Int : 166 ms QRS Dur : 078 ms QT Int : 354 ms P-R-T Axes : 068 076 035 degrees QTc Int : 465 ms Sinus tachycardia. Otherwise normal ECG When compared with ECG of 01-APR-2018 00:33, No significant change was found Unconfirmed Result
[2018-08-15] MEDS: MORPHINE IV PRN ×3 (02:31→22:29)
--- NOTE | 2018-08-15 05:56 | HISTORY AND PHYSICAL ---
ADDENDUM: Ms. 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 Hope, came in complaining of left-sided chest pain. He went to [place] and was found to have large pneumothorax, chest tube was placed. She was transferred to our service overnight. She is tolerating chest tube. Followup chest film does show at least a 50 percent reduction in prior left pneumothorax. She does have extensive interstitial lung disease from sarcoidosis. Currently, her vital signs are blood pressure 120/95, heart rate 70, respirations 18, temperature 98.[address] Merlos has seen patient, will be following along. Right now, the patient's exam is grossly notable for decreased entry in the left lung field, while a lot of coarse velcro crepitations on the right side. Lab work was only notable for mildly elevated transaminases, which could be related to hepatic involvement of sarcoidosis. So, patient will still be on chest tube for the next few days. Hopefully, it can be clamped and subsequently removed. If needed, breathing treatments can be offered. Dr. Hope will be notified to see patient later. cc: MD SIENNA Roebrt
[2018-08-15] MEDS: NS 1,000 ML IV SCH ×2 (06:17→17:44)
[2018-08-15 06:53] LABS: BASO# 0.03 X1000 (0.0-0.2); BASO% 0.5 % (0.0-0.8); EOS# 0.22 X1000 (0.0-0.7); EOS% 3.6 % (0.0-10.0); HEMATOCRIT 38.9 % (37.0-47.0); HEMOGLOBIN 12.3 g/dL (12.0-16.0); LYMPH# 1.03 X1000 (1.2-3.4); LYMPH% 16.8 % (20.5-51.1); MCH 27.9 PG (27-31); MCHC 31.6 g/dL (33-37); MCV 88.2 FL (81-99); MONO% 9.8 % (1.7-9.3); MPV 10.8 FL (7.4-10.4); NEUT# 4.26 X1000 (1.4-6.5); NEUT% 69.3 % (42.2-75.2); PLT 188 X1000 (130-400); RBC 4.41 XMIL (4.2-5.4); RDW 14.6 % (11.5-14.5); WBC 6.14 X1000 (4.8-10.8)
[2018-08-15 06:54] LABS: INR 1.03; PROTIME 14.3 Seconds (11.0-16.0)
[2018-08-15 06:55] LABS: PTT 31.5 Seconds (22.3-41.8)
[2018-08-15 07:10] LABS: AGAP 8; BUN 8 mg/dL (8-22); CALCIUM 8.4 mg/dL (8.8-10.2); CHLORIDE 105 mmol/L (98-107); COSMO 273; CREATININE 0.6 mg/dL (0.5-0.9); ESTIMATED GFR > 60; GLUCOSE 116 mg/dL (70-104); POTASSIUM 3.7 mmol/L (3.5-5.1); SODIUM 137 mmol/L (136-145); TCO2 24 mmol/L (25-35)
[2018-08-15] MEDS: DUONEB (A & A) INH PRN ×2 (07:43→10:42)
[2018-08-15 08:16] LABS: ALB/GLOB RATIO 0.8; ALBUMIN 3.4 g/dL (3.5-5.0); DIRECT BILIRUBIN 0.3 mg/dL (0.00-0.20); TOTAL BILIRUBIN 1.15 mg/dL (0.20-1.00); TOTAL PROTEIN 7.5 g/dL (6.3-8.3)
--- NOTE | 2018-08-15 08:36 | Diag Imaging Result Doc PS360 ---
EXAM: CHEST-PORTABLE 08/15/2018 HISTORY: ptx TECHNIQUE: AP portable at 0826 COMMENT: The chest tube is again noted over the left hemidiaphragm. There is still some residual pneumothorax on the left which has further diminished since the previous study of 08/14/2017. This measures slightly more than 8 mm at the left apex. Previously it measured over 13 mm. There is improving atelectasis in the left lung. There is continued bibasilar opacity consistent with pneumonia and/or pulmonary edema. IMPRESSION: Improving left pneumothorax. Electronically signed by Orlin Stiles 08/15/2018 8:34 AM
--- NOTE | 2018-08-15 10:12 | GENERAL SURGERY CONSULTATION ---
DATE: 08/14/2018 HISTORY OF PRESENT ILLNESS: This is a 42-year-old female with recent diagnosis of sarcoidosis. She had a prolonged ICU stay for necrotizing pneumonia and histoplasmosis. She is followed by Dr. Hope for this. She developed over the last several days pleuritic pain that culminated today with an ER visit, where she was found to have a left pneumothorax with early tension changes. Dr. Spence placed a left chest tube. She feels better. Chest x-ray showed improvement but incomplete resolution of the left pneumothorax. MEDICAL HISTORY: Sarcoidosis. SURGICAL HISTORY: Negative for thoracic or vascular procedures. SOCIAL HISTORY: No tobacco, alcohol, or drugs. 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 FAMILY HISTORY: Reviewed and noncontributory. REVIEW OF SYSTEMS: Ten points negative. OBJECTIVE: General: She was low-grade tachycardia in the low 100s, but this has improved while here. No fevers. Blood pressure 145/108 oxygen saturation 99% on 2 L. General: She is alert. HEENT: No scleral icterus. Neck: No cervical mass. Cardiovascular: Normal rate. Pulmonary: There is a left-sided chest tube to -20 suction. There is maybe a forced expiratory leak, very low level. Chest tube seems to be in good place with minimal drainage on the dressing. Abdomen: Soft. Integument: Warm, dry. Psychiatric: Appropriate affect. Neurologic: No gross deficits. DIAGNOSTIC STUDIES: White count 7, hematocrit 41, platelets 220,000. Creatinine is 0.5, bilirubin is mildly elevated, albumin is 3.7. I have reviewed her both her pre- and post- chest x-ray films. ASSESSMENT AND PLAN: This is a 42-year-old female with spontaneous left pneumothorax in the setting of sarcoidosis and recent history of necrotizing pneumonia. She has been admitted to hospitalist service, transfer to [facility]. We will engage Dr. Hope, and we will follow her chest tube going forward. We will keep it to suction tonight. She may need a more apically placed tube, depending on the expansion of the lung over the next couple of days. I discussed this possibility. Otherwise, we will continue to follow her closely, but no plans for emergent surgical intervention. cc: MD Jonathon Bahena MD
[2018-08-15] MEDS: TYLENOL PO PRN ×2 (11:18→18:21)
[2018-08-15] MEDS: DUONEB (A & A) INH SCH ×3 (15:45→23:20)
[2018-08-15] MEDS ORDERED: LEVAQUIN 750 MG/D5W 750 MG/150 ML IVPB IV SCH (23:15)
--- NOTE | 2018-08-16 01:33 | HISTORY AND PHYSICAL ---
[employer] MECHANIC: Dr. Hope. DATE AND TIME OF HISTORY AND PHYSICAL: 08/15/2018 at 02:15. CHIEF COMPLAINT: Left chest pain shortness of breath. HISTORY OF PRESENT ILLNESS: Ms. Frausto is a 42-year-old female with a past medical history most notable for sarcoidosis. She was most recently admitted to our facility in March of 2018 for which she was treated for pneumonia which was noted to be possible cavitary pneumonia as well as sarcoidosis. Since being discharged, she has been following up with Dr. Hope with pulmonology. She states she most recently saw him on August 03, just a little over a week ago. She states this was a routine follow up. She denied any symptoms at that time. She states that they did perform a chest x-ray though she was not notified of any abnormal finding. The patient states on , now approximately 2 days ago, she did begin to have some left lower chest pain and then yesterday on Friday she did start having shortness of breath and developed a nonproductive cough. She presented to the ER at [facility] for evaluation. In the ER at [facility], the patient was noted on her chest x-ray to have a large pneumothorax on the left which may be under tension. There was complete collapse of the left lung. There were also coarse opacities throughout much of the right lower lobe and right middle lobe though this was also present on a previous study. This could be secondary to her lung disease given her history of sarcoidosis. She did have a chest tube placed in the ER and her repeat chest x- ray after chest tube placement did show improving left pneumothorax and atelectasis. It was also noted that on the repeat x-ray that some of her atelectasis of the right lung base had improved. The patient denied any recent trauma or injury. She stated a couple weeks ago she was in [place] and did trip and fall and bumped her head though she denied having any injury or trauma to the chest, abdomen or back. The patient states that she simply bumped her head only. She denies any headache, dizziness. She denies any chest pain other than the pain that she reported down at her left lower chest border. She is reporting some shortness of breath though states this has pretty much resolved since her chest tube placement. She is of course reporting some discomfort at the chest tube insertion site. She denies any fever, body aches, or chills. She has reported some occasional recent sinus congestion though up until yesterday had denied any cough until her shortness of breath started. This has been nonproductive. She has been afebrile since arrival. Her white blood cell count is not elevated. She denies any abdominal pain, nausea, vomiting, or diarrhea. She denies any hematochezia or melena. She denies history of having problems with constipation. She denies any dysuria or urinary frequency. She also denies any pain, numbness, tingling or swelling in extremities. The patient was seen by Dr. Merlos in the ER at [facility]. She will be transferred to [facility] to be admitted to the hospitalist service and we will place a consult with Dr. Merlos with surgery as well as Dr. Hope with pulmonology. REVIEW OF SYSTEMS: A 14 point review of systems was conducted with the patient and all were negative except for pertinent positives mentioned above in HPI. PAST MEDICAL HISTORY: 1. History of sarcoidosis, currently being followed by Dr. Hope. 2. 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 3. History of thyroid goiter status post goiter and questionable partial thyroidectomy though the patient states she does not have to take medication such as levothyroxine. Her TSH on her previous admission was within normal limits. PAST SURGICAL HISTORY: 1. Laparoscopic cholecystectomy. 2. History of goiter and partial thyroidectomy. SOCIAL HISTORY: The patient denies any past or present tobacco, alcohol or illicit drug use. She does work at a [employer] plant here in [place]. FAMILY HISTORY: Positive for hypertension, diabetes in some of her brothers and her mother has a history of multiple myeloma. ALLERGIES: Patient has no known allergies. HOME MEDICATION: The patient denies any prescription or [id number] medication use. DIAGNOSTIC DATA/LABORATORY RESULTS: White blood cell count is 7.8, hemoglobin 13.3, hematocrit 41.1, platelet count is 220,000. PT 14.3, INR 1.03, PTT is 31.5. Sodium 141, potassium 3.7, chloride 103, serum bicarbonate is 25, BUN 8, creatinine 0.5, glucose 93, calcium 8.8, total bilirubin is 1.2, AST 65, ALT 50 alkaline phosphatase is 386. Initial chest x-ray did show a large pneumothorax on the left which may be under tension. There was complete collapse of the left lung. There were also coarse opacities throughout much of the right lower lobe and middle lobe. Repeat chest x-ray after chest tube placement did show improving left pneumothorax and improvement of atelectasis previously noted. PHYSICAL EXAMINATION: VITAL SIGNS: Temperature 98.5 degrees, heart rate 91, respirations 16, blood pressure 128/90, oxygen saturation is 100% nasal cannula at 2 L. GENERAL: Ms. Lisbet mcconnell is a very pleasant 42-year-old female. She was resting in the inpatient bed. She was in no acute distress. She was awake, alert, and able to answer questions appropriately. She was not in any respiratory distress. She was able to speak in full sentences. The only pain she is reporting at this time is some discomfort related to her chest tube, mainly pain at chest tube site which worsens with movement. HEENT: Head is atraumatic, normocephalic. Pupils bilaterally are misshaped. The patient has had bilateral cataract surgery. She does have loss of vision in her left eye secondary to this. Oral mucosa is moist. Oropharynx is clear. NECK: Supple. Trachea midline. CARDIOVASCULAR: Patient has S1-S2 present. No murmurs, gallops, rubs appreciated with a regular rate and rhythm. PULMONARY: Patient has symmetrical chest expansion bilaterally. She does have decreased lung sounds on the left though she did have a lung sounds auscultated in full left lung gandhi. She does have coarse crackles noted on right mid and lower lung gandhi. ABDOMEN: Soft, nontender, nondistended. Bowel sounds are present in all 4 quadrants, were normoactive. EXTREMITIES: No cyanosis or edema noted. Pulse, motor, and sensory were intact in all extremities. Radial pulses and pedal pulses were 2+ bilaterally. INTEGUMENTARY: The patient's skin color is normal for her race, is dry and intact. NEUROLOGICAL: Patient is alert and oriented x4. She is able to move all extremities. There do not appear to be any focal neurological deficits noted. ASSESSMENT AND PLAN: 1. Spontaneous left pneumothorax. The patient denied any recent trauma or injury. Her pneumothorax may be related to her sarcoidosis. She has since had a chest tube placed in the ER at [facility]. Dr. Merlos has evaluated the patient since the chest tube has been placed. Repeat x-rays did show improvement of the pneumothorax. We have placed a consult with Dr. Merlos with general surgery and Dr. Hope with pulmonology. We will await their evaluation and further recommendations for management. 2. History of sarcoidosis. Patient does see Dr. Hope on a regular basis for this. She did just recently have an appointment on August 03. Patient was noted to have some opacities throughout much of the right lower lobe and middle lobe. She does have some coarse crackles noted this side as well with some diminished lung sounds on the left though her lab work did not reveal an elevated white blood cell count. The patient has been afebrile. Until her onset of shortness of breath and nonproductive cough over the past 2 days, she has denied any other previous symptoms. She denies any fever, body aches, or chills. Blood cultures were obtained at [facility] and she did receive a dose of Levaquin IV though at this time we will hold off on any further antibiotics given that x-ray findings may be related to her extensive lung disease. We will continue to follow along and re-evaluate with a repeat chest x-ray. We have placed p.r.n. DuoNeb treatments if needed. She will be on supplemental oxygen. She will be on continuous cardiac telemetry and will have frequent vital signs. 3. Transaminitis. The patient has had this previously as well. Looking back at her most recent labs, this does appear to be stable and has not worsened. This could be secondary to her sarcoidosis. We will continue to follow. 4. Deep vein thrombosis prophylaxis will be provided with SCDs. The patient has been placed on the surgical floor. We will provide some gentle fluid hydration with normal saline at 85 mL per hour. We will provide pain control as well with p.r.n. morphine and Zofran as needed for nausea. We will repeat a CBC and BMP in the morning. Further orders and recommendations pending hospital course, diagnostic studies, and physician evaluation. Dictated by GLORIA Beck for Jonathon Torres MD cc: Jonathon Torres MD [facility]
--- NOTE | 2018-08-16 05:49 | GENERAL SURGERY PROGRESS NOTE ---
DATE: 08/16/2018 SUBJECTIVE: She feels better. No shortness of breath. No fevers, no tachycardia overnight. OBJECTIVE: The left chest tube does not have an air leak. It is in place. There is minimal drainage around the tube. DIAGNOSTIC DATA: I reviewed her labs and her chest x-ray, which shows overall improvement of her pneumothorax. ASSESSMENT AND PLAN: A 42-year-old female with spontaneous pneumothorax in the setting of sarcoidosis and lung disease, with recent necrotizing pneumonia. We will keep her chest tube in place, as I do feel it is adequately resolving her pneumothorax. She may ultimately require a more apically placed tube, but in the meantime we will continue what we are doing now. I would recommend engaging the Pulmonary service. Appreciate the hospitalists' help. cc: MD Jonathon Bahena MD
[2018-08-16 06:19] LABS: HEMATOCRIT 36.6 % (37.0-47.0); HEMOGLOBIN 11.4 g/dL (12.0-16.0); MCH 28.3 PG (27-31); MCHC 31.1 g/dL (33-37); MCV 90.8 FL (81-99); MPV 10.4 FL (7.4-10.4); RBC 4.03 XMIL (4.2-5.4); RDW 14.7 % (11.5-14.5); WBC 4.26 X1000 (4.8-10.8)
[2018-08-16 07:02] LABS: AGAP 8; ALB/GLOB RATIO 0.7; ALBUMIN 3.1 g/dL (3.5-5.0); ALKALINE PHOSPHATASE 341 U/L (32-104); BUN 5 mg/dL (8-22); CALCIUM 8.6 mg/dL (8.8-10.2); CHLORIDE 105 mmol/L (98-107); COSMO 275; CREATININE 0.6 mg/dL (0.5-0.9); ESTIMATED GFR > 60; GLUCOSE 95 mg/dL (70-104); GOT 63 U/L (10-30); GPT 50 U/L (10-36); POTASSIUM 4.3 mmol/L (3.5-5.1); SODIUM 139 mmol/L (136-145); TCO2 26 mmol/L (25-35); TOTAL BILIRUBIN 0.91 mg/dL (0.20-1.00); TOTAL PROTEIN 7.6 g/dL (6.3-8.3)
--- NOTE | 2018-08-16 07:02 | Diag Imaging Result Doc PS360 ---
EXAM: CHEST-PORTABLE 08/16/2018 HISTORY: pneumothorax TECHNIQUE: AP portable at 0438 COMMENT: There is a chest tube on the left. There is still some residual apical pneumothorax on the left but this has diminished further since the previous examination now measuring about 6 mm. There continues to be patchy alveolar opacity as well as interstitial opacity bilaterally particularly in the lingula and right lower lobe. There is slightly more pleural fluid on the right than on the previous study. IMPRESSION: Improving left pneumothorax. Patchy atelectasis and/or pneumonia with pulmonary edema and right pleural effusion. Electronically signed by Orlin Stiles 08/16/2018 6:59 AM
[2018-08-16] MEDS: DUONEB (A & A) INH SCH ×5 (07:51→23:13)
--- NOTE | 2018-08-16 08:44 | PULMONOLOGY CONSULTATION ---
DATE: 08/15/2018 REQUESTING PHYSICIAN: Dr. Ramon. REASON FOR CONSULTATION: Pneumothorax and sarcoidosis. HISTORY OF PRESENT ILLNESS: Ms. Frausto is a 42-year-old black female with history of sarcoidosis who follows at [facility]. In 2009, when she had sarcoid affecting her left eye, she was evaluated at the [facility] and biopsies were performed. Results of these biopsies have not been reviewed, but her Sarcoid Clinic note has been reviewed. She had pulmonary function studies at that time, which revealed moderate restrictive physiology with a forced vital capacity of 56, FEV1 of 60, and a total lung capacity of 56% predicted. She has subsequently been followed in my clinic and has had slight decline compared to does pulmonary function studies. The patient was recently evaluated in my clinic and was doing relatively well. The patient developed worsening left-sided chest pain along with progressive shortness of breath, and presented with a 24-hour history of shortness of breath. Chest x-ray revealed a large left-sided pneumothorax. Chest tube was placed and she was admitted to the hospital for additional management. PAST MEDICAL HISTORY/PROBLEM LIST: 1. Sarcoidosis. 2. Bronchiectasis. 3. Vision loss in the left eye. 4. Goiter. 5. Status post cholecystectomy. 6. Status post tubal ligation. SOCIAL HISTORY: The patient is a never smoker. No alcohol use. FAMILY HISTORY: Positive for lung cancer and multiple myeloma. Negative for tuberculosis. REVIEW OF SYSTEMS: Negative except for intermittent left-sided chest pain. PHYSICAL EXAMINATION: General: Reveals a healthy-appearing black female resting comfortably and in no distress. Vital signs: BP 128/82, heart rate 88, respiratory rate 20, oxygen saturation 98% on nasal cannula. HEENT: The right pupil is midpoint and reactive. Left pupil is nonreactive. Oropharynx appears clear. Neck: Supple. Chest: Reveals shallow breath sounds bilaterally. No crackles identified. No air leak identified. Cardiac: Regular rate. Normal S1, normal S2. Abdomen: Soft. Extremities: Without edema. LABORATORIES: Chest x-ray in the emergency room reveals large left-sided pleural effusion which may be under tension. Chest x-ray following chest tube placement reveals improvement with incomplete reexpansion of the left lung. IMPRESSION: A 42-year-old with 1. Spontaneous pneumothorax. 2. Acute hypoxemic respiratory failure. 3. Pleuritic left-sided chest pain. 4. Sarcoidosis. 5. Bronchiectasis without exacerbation. RECOMMENDATIONS: 1. Continue chest tube management per general surgery. With her restrictive physiology, she may take more time to completely re-expand the left lung. 2. Continue oxygen for hypoxemic respiratory failure. 3. Avoid steroids, if possible, to help promote sealing of the pneumothorax. 4. Check sputum for C and S. cc: Moody Hope MD
[2018-08-16] MEDS: MORPHINE IV PRN ×2 (09:14→22:20)
[2018-08-16] MEDS: LACTULOSE PO SCH ×2 (12:10→22:20)
[2018-08-16] MEDS: MAXIPIME 1 GM in NS 50 ML IV SCH ×3 (12:10→23:58)
[2018-08-16] MEDS: ZYVOX 600 MG/D5W 600 MG/300 ML IVPB IV SCH ×2 (12:50→22:20)
[2018-08-16 14:37] LABS: HEPATITIS PROFILE ACUTE SEE COMMENTS
--- NOTE | 2018-08-16 14:59 | PROGRESS NOTE ---
DATE: 08/16/2018 SUBJECTIVE: The patient is resting comfortably in bed. She states that she started coughing up some yellow sputum. She does complain of pain at the site of the chest tube insertion site. OBJECTIVE: Vital Signs: Temperature 98.5 degrees, blood pressure 120/72, heart rate 97, respirations 18, O2 saturation is 95% on 2 L nasal cannula. General: This is a middle-aged female, sitting up in bed, in no acute distress. Heart: S1, S2 normal. Regular rate and rhythm. Lungs: Equal air entry bilaterally. No wheezing. No rales. No rhonchi. Abdomen: Positive bowel sounds. Soft, nontender, nondistended. Extremities: No edema. No cyanosis. Neurologic: The patient is alert and oriented x4. Labs: White blood cell count 4.2, hemoglobin 11, hematocrit 36, platelets 175,000. Sodium 139, potassium 4.3, chloride 105, CO2 26, BUN 5, creatinine 0.6, glucose 95. AST 63, ALT 50, alkaline phosphatase 341, albumin 3.1. Chest x-ray shows improving left pneumothorax, patchy atelectasis and/or pneumonia with pulmonary edema and a right pleural effusion. ASSESSMENT AND PLAN: 1. Spontaneous left pneumothorax. Continue with chest tube. Management as per general surgery and pulmonology. 2. Possible pneumonia. We will check a procalcitonin level. The sputum culture results are currently pending. In the meantime, we will cover the patient with broad- spectrum antibiotics. 3. Constipation. We will start the patient on laxative therapy. 4. Sarcoidosis. Aware. 5. Elevated liver function tests. Stable. We will continue to monitor closely. 6. Deep vein thrombosis prophylaxis. We will start the patient on Lovenox. cc: Rachel Ramon MD [facility]
[2018-08-16] MEDS: LOVENOX SUBQ SCH (15:03)
--- NOTE | 2018-08-16 17:31 | PULMONOLOGY PROGRESS NOTE ---
DATE: 08/16/2018 SUBJECTIVE: The patient is awake, alert, and conversant. She denies significant sputum production. She is tolerating the pain without difficulty. OBJECTIVE: Vital signs: The patient has been afebrile for the last 24 hours. Blood pressure 120/72, heart rate 97, respiratory rate 16, oxygen saturation 95% on 2 L per nasal cannula. HEENT: Pupils are equal and reactive. Oropharynx is clear. Neck: Supple. Chest: Reveals shallow breath sounds bilaterally. No air leak noted. Cardiac: S1, S2. Increased rate. Abdomen: Soft. Extremities: Without edema. IMAGING: Chest x-ray reveals patchy atelectasis or pneumonia in the left mid lung zone, small right effusion, and tiny left-sided pneumothorax. LABORATORY DATA: Sputum cultures are pending, but preliminary is normal amalia. IMPRESSION: A 42-year-old with 1. Spontaneous pneumothorax. 2. Acute hypoxemic respiratory failure. 3. Sarcoidosis. 4. Bronchiectasis without exacerbation. PLAN: 1. Continue chest tube management per General Surgery. No air leak noted. 2. Continue to wean oxygen as tolerated. 3. Avoid steroids if possible. 4. Await final result on sputum culture. cc: Moody Hope MD
[2018-08-16] MEDS: MIRALAX PO SCH (20:46)
[2018-08-16] MEDS: COLACE PO SCH (20:46)
--- NOTE | 2018-08-16 21:10 | GENERAL SURGERY PROGRESS NOTE ---
DATE: 08/16/2018 SUBJECTIVE: Doing okay. No respiratory symptoms overnight. Her chest tube is in place. No significant air leak. No fevers, no tachycardia. I reviewed her labs. Left chest tube was secured well. Her x-ray this morning showed continued improvement in her pneumothorax. ASSESSMENT AND PLAN: This is a 42-year-old female with severe sarcoidosis related lung disease has spontaneous pneumothorax. Chest tubes although coursing along the diaphragm seems to be controlling pneumothorax well. There is no air leak. Will keep to suction today.[ cc: Evert Merlos MD [facility]TD[facility]
[2018-08-17 06:47] LABS: BASO# 0.03 X1000 (0.0-0.2); BASO% 0.6 % (0.0-0.8); EOS# 0.39 X1000 (0.0-0.7); EOS% 7.4 % (0.0-10.0); HEMATOCRIT 38.6 % (37.0-47.0); HEMOGLOBIN 11.9 g/dL (12.0-16.0); IMM GRAN# 0.02 X1000 (0.0-0.04); IMM GRAN% 0.4 % (0.0-0.5); LYMPH# 1.42 X1000 (1.2-3.4); MCH 27.7 PG (27-31); MCHC 30.8 g/dL (33-37); MCV 89.8 FL (81-99); MONO# 0.71 X1000 (0.11-0.59); MONO% 13.5 % (1.7-9.3); MPV 10.7 FL (7.4-10.4); NEUT# 2.69 X1000 (1.4-6.5); NEUT% 51.1 % (42.2-75.2); PLT 206 X1000 (130-400); RDW 14.7 % (11.5-14.5); WBC 5.26 X1000 (4.8-10.8)
--- NOTE | 2018-08-17 06:51 | Diag Imaging Result Doc PS360 ---
EXAM: CHEST-PORTABLE HISTORY: pneumothorax TECHNIQUE: Portable chest single view COMPARISON: 08/16/2018 FINDINGS: Poor inspiratory effort. There are infiltrates in the mid and lower lungs as well as atelectasis and small pleural effusions. No change in the left sided chest tube. Tiny apical pneumothorax. IMPRESSION: Mild interval improvement. Electronically signed by Anderson Bella 08/17/2018 6:49 AM
[2018-08-17 07:05] LABS: AGAP 8; ALB/GLOB RATIO 0.7; ALKALINE PHOSPHATASE 369 U/L (32-104); BUN 9 mg/dL (8-22); CALCIUM 8.6 mg/dL (8.8-10.2); CHLORIDE 101 mmol/L (98-107); COSMO 270; CREATININE 0.7 mg/dL (0.5-0.9); ESTIMATED GFR > 60; GLUCOSE 89 mg/dL (70-104); GOT 98 U/L (10-30); GPT 76 U/L (10-36); POTASSIUM 4.4 mmol/L (3.5-5.1); SODIUM 136 mmol/L (136-145); TCO2 27 mmol/L (25-35); TOTAL BILIRUBIN 1.06 mg/dL (0.20-1.00); TOTAL PROTEIN 7.6 g/dL (6.3-8.3)
[2018-08-17] MEDS: DUONEB (A & A) INH SCH ×5 (07:49→23:11)
[2018-08-17] MEDS: MIRALAX PO SCH ×2 (08:16→21:29)
[2018-08-17] MEDS: LACTULOSE PO SCH ×2 (08:16→21:29)
[2018-08-17] MEDS: COLACE PO SCH ×2 (08:16→21:28)
[2018-08-17] MEDS: MAXIPIME 1 GM in NS 50 ML IV SCH ×3 (08:16→21:29)
--- NOTE | 2018-08-17 10:23 | PROGRESS NOTE ---
DATE: 08/17/2018 SUBJECTIVE: Ms. Ian Frausto is a 42-year-old female. She is in no acute distress. She has been eating breakfast, drinking coffee, taking her Colace, stating that on her to-do list today is to have a bowel movement. She does complain of having some yellow phlegm that she coughs up. There is complaints of pain of the left chest tube site only when she is moving. Denies any fever or chills. Otherwise, she is comfortable. OBJECTIVE: Vital signs: Temperature is 98.8, heart rate 88, respiratory rate 18, blood pressure 115/70, O2 saturation is 95% on 1 L nasal cannula. General: Ms. Ian Frausto is a 42-year-old female. She is in no acute distress. She is able to answer questions appropriately. Cardiovascular: S1, S2. Regular rate and rhythm. No rubs, gallops or murmurs. No lower extremity edema. Plus 2 dorsalis and radial pulses. Negative JVD or carotid bruits. Pulmonary: Clear to auscultation with bilateral breath sounds in the upper lobes. Not coarse at this time. Decreased in the base on the left. Negative for air leak on the chest tube that is in the left chest wall and is currently at negative 20 suction with serous fluid drainage. GI: Soft, nontender and nondistended. Positive bowel sounds x4. Extremities: Moves all extremities equally. Full range of motion. Neurologic: Alert and oriented x3. Follows commands. Sensory is intact. DIAGNOSTIC DATA: Micro with blood cultures negative so far. Sputum culture from 08/15/2018 with 1+ gram-positive cocci, 1+ gram-negative rods. White blood cells 5000, hemoglobin 11, hematocrit 38, platelet count 206. Sodium is 136, potassium 4.4, BUN is 9, creatinine 0.7, glucose 89, calcium 8.6, bilirubin 1.06, AST is 98, ALT is 76, alkaline phosphatase is 369. Albumin 3.0. Hepatitis panel negative, nonreactive. IMAGING: Chest x-ray today with mild improvement. Tiny left apical pneumo. There are some infiltrates in the mid and lower lobes with atelectasis and small pleural effusion. Chest tube in the left side is in place. ASSESSMENT AND PLAN: 1. Spontaneous left pneumothorax with chest tube in place. Managed by General Surgery. It is at negative 20 suction with clear pleural serous fluid. Negative for air leak with cough. According to the patient, she states that the plan is for another 2 days of chest tube. 2. Pneumonia with sputum culture so far showing 1+ gram-negative rods and 1+ gram-positive cocci that was sent on 08/15/2018, two days ago. White blood cells normal. She is afebrile. She is continued on cefepime and Zyvox for now. 3. Constipation. She only took one dose of lactulose yesterday, otherwise refusing the other last 2 doses that were prescribed. It is ordered twice a day. She is trying coffee. She is taking her stool softener. She says her goal is to have a bowel movement today. 4. Sarcoidosis stage 3 to 4. Followed by Pulmonary. Currently stable. 5. Transaminitis. Hepatitis panel negative. We will continue to monitor. 6. DVT prophylaxis with Lovenox. Dictated by GLORIA Sweet for Rachel Ramon MD cc: GLORIA Sweet MD
[2018-08-17] MEDS: ZYVOX 600 MG/D5W 600 MG/300 ML IVPB IV SCH ×2 (10:30→22:02)
[2018-08-17] MEDS: LOVENOX SUBQ SCH (14:33)
[2018-08-17] MEDS: MORPHINE IV PRN ×2 (14:33→22:01)
--- NOTE | 2018-08-17 16:06 | GENERAL SURGERY PROGRESS NOTE ---
DATE: 08/17/2018 SUBJECTIVE: Doing okay. No respiratory symptoms. No fevers. No tachycardia. OBJECTIVE: Blood pressure 116/70, oxygen saturation is 98% on 1 L. Left chest tube is in place. Minimal drainage. No air leak. It remains to suction. LAB AND X-RAYS: White count 5000, hematocrit 38. Review of her x-ray shows near complete resolution of her pneumothorax with no significant effusion. ASSESSMENT AND PLAN: A 42-year-old female with spontaneous left pneumothorax in the setting of sarcoidosis. We will keep her chest tube to suction. Plan may be water sealing tomorrow. cc: Evert Merlos MD
--- NOTE | 2018-08-17 22:00 | PULMONOLOGY PROGRESS NOTE ---
DATE: 08/17/2018 SUBJECTIVE: The patient is awake, alert, and conversant. She does report some chest pain with deep inspiration. She denies dyspnea. OBJECTIVE: Vital Signs: The patient has been afebrile for the last 24 hours. Blood pressure 111/69, heart rate 90, respiratory rate 18, oxygen saturation 94% on room air. HEENT: Pupils are equal and reactive. Oropharynx is clear. Neck: Supple. Chest: Good air entry bilaterally. No air leak noted. Cardiac: S1, S2. Abdomen: Soft. Extremities: Without edema. LABORATORIES: Chest x-ray reveals tiny apical pneumothorax. IMPRESSION: A 42-year-old with: 1. Sarcoidosis. 2. Bronchiectasis. 3. Acute hypoxemic respiratory failure with continued improvement. 4. Spontaneous pneumothorax. PLAN: 1. Chest tube management as directed per Dr. Sotero Merlos. 2. Mobilize as tolerated. 3. Continue antibiotics pending results of the sputum culture, which is growing a gram-negative nuvia. cc: Moody Hope MD
[2018-08-18 06:36] LABS: HEMATOCRIT 38.2 % (37.0-47.0); HEMOGLOBIN 11.9 g/dL (12.0-16.0); MCH 27.7 PG (27-31); MCHC 31.2 g/dL (33-37); MCV 88.8 FL (81-99); MPV 10.7 FL (7.4-10.4); NEUT% 51.9 % (42.2-75.2); PLT 199 X1000 (130-400); RDW 14.9 % (11.5-14.5); WBC 4.87 X1000 (4.8-10.8)
[2018-08-18 06:37] LABS: BASO# 0.04 X1000 (0.0-0.2); BASO% 0.8 % (0.0-0.8); EOS% 10.3 % (0.0-10.0); IMM GRAN# 0.03 X1000 (0.0-0.04); IMM GRAN% 0.6 % (0.0-0.5); LYMPH# 1.29 X1000 (1.2-3.4); LYMPH% 26.5 % (20.5-51.1); MONO# 0.48 X1000 (0.11-0.59); MONO% 9.9 % (1.7-9.3); NEUT# 2.53 X1000 (1.4-6.5)
--- NOTE | 2018-08-18 06:48 | Diag Imaging Result Doc PS360 ---
CHEST-PORTABLE - 08/18/2018 INDICATION: pneumothorax COMPARISON: 08/17/2018 FINDINGS: Stable left basilar chest tube. No pneumothorax or significant pleural effusion. There is continued improvement in the irregular infiltrates throughout the left midlung and lung base. Stable infiltrate in the right lung base. Heart size remains normal. IMPRESSION: Slight improvement in the left basilar infiltrate. No pneumothorax. Electronically signed by Francisco J Posey 08/18/2018 6:45 AM
[2018-08-18 07:06] LABS: AGAP 11; BUN 8 mg/dL (8-22); CALCIUM 8.5 mg/dL (8.8-10.2); CHLORIDE 100 mmol/L (98-107); COSMO 272; CREATININE 0.6 mg/dL (0.5-0.9); ESTIMATED GFR > 60; GLUCOSE 91 mg/dL (70-104); POTASSIUM 4.3 mmol/L (3.5-5.1); SODIUM 137 mmol/L (136-145); TCO2 26 mmol/L (25-35)
[2018-08-18] MEDS: DUONEB (A & A) INH SCH ×5 (08:15→23:57)
[2018-08-18] MEDS: MAXIPIME 1 GM in NS 50 ML IV SCH (10:03)
[2018-08-18] MEDS: MORPHINE IV PRN ×2 (10:09→21:33)
[2018-08-18] MEDS: ZYVOX 600 MG/D5W 600 MG/300 ML IVPB IV SCH (11:02)
[2018-08-18] MEDS: LOVENOX SUBQ SCH (14:50)
[2018-08-18] MEDS: LACTULOSE PO SCH ×2 (14:50→20:40)
[2018-08-18] MEDS: ZOSYN 3.375 GM in NS 50 ML IV SCH ×2 (14:50→20:39)
[2018-08-18] MEDS: MIRALAX PO SCH ×2 (14:53→20:40)
[2018-08-18] MEDS: COLACE PO SCH ×2 (14:53→20:39)
--- NOTE | 2018-08-18 15:13 | PROGRESS NOTE ---
DATE: 08/18/2018 SUBJECTIVE: The patient is resting comfortably in bed. Not in any obvious distress. OBJECTIVE: Vital signs: Temperature 98 degrees, pulse 98, respirations 14, blood pressure is 114/68, oxygen saturation is 100%. HEENT: Atraumatic, normocephalic. Cardiovascular: S1, S2. Respiratory: Has evidence of good entry bilaterally. Abdomen: Soft and nontender. No masses felt. Extremities: No evidence of edema. Central nervous system: No obvious focal deficits noted. LABORATORY DATA: WBC is 4.87, hematocrit is 38.2, with a platelet count of 199,000. Sodium is 137, potassium 4.3, chloride is 100, bicarbonate is 26, BUN is 8, creatinine 0.6. X-ray of the chest shows a slight improvement in left basilar infiltrate. No evidence of pneumothorax. Sputum culture positive for Klebsiella pneumonia, and that is sensitive to piperacillin and tazobactam. ASSESSMENT AND PLAN: 1. Spontaneous left pneumothorax. Left chest tube in place. Management per general surgery. 2. Pneumonia. Deescalate antibiotic regiment based on sputum culture report. Maintain the patient on supplemental oxygen if necessary as well as nebulized bronchodilators if needed. 3. Sarcoidosis. Aware. 4. Abnormal liver function test. Check hepatitis panel, antinuclear antibody level, ferritin level, as well as abdominal ultrasound. 5. Deep vein thrombosis prophylaxis. Lovenox. cc: Dutch Galindo MD
--- NOTE | 2018-08-18 16:31 | Diag Imaging Result Doc PS360 ---
EXAM: US ABDOMEN-COMPLETE 08/18/2018 HISTORY: abnormal lfts TECHNIQUE: Right upper quadrant ultrasound (left upper quadrant cannot be evaluated due to the presence of a chest tube.) COMMENT: The pancreas is unremarkable in appearance. The visualized portions of the aorta and inferior vena cava are within normal limits. There is antegrade flow in the portal vein. The right kidney is without evidence of hydronephrosis or mass. The left kidney is not evaluated. The spleen is not evaluated. There is no evidence of biliary dilatation the common bile duct measuring 6 mm. The liver is unremarkable in appearance. The gallbladder is surgically absent. IMPRESSION: No evidence of acute disease. Electronically signed by Orlin Stiles 08/18/2018 4:28 PM
--- NOTE | 2018-08-18 18:45 | GENERAL SURGERY PROGRESS NOTE ---
DATE: 08/18/2018 SUBJECTIVE: She feels well. No respiratory symptoms. No fevers. OBJECTIVE: Vital signs: Pulse 93 this morning, blood pressure 114/68, oxygen saturation is 100%. She is on room air. General: She is alert. Chest: Left chest tube in place. There is no air leak. Minimal output. LABORATORY: White count 4. I reviewed her x-ray. It shows improvement in the basilar atelectasis. There is no pneumothorax on her x-ray. ASSESSMENT AND PLAN: This is a 42-year-old female with spontaneous pneumothorax in the setting of sarcoidosis. We will water seal her chest tube today. If it remains inflated tomorrow we will consider removal of the tube. Pulmonary service is following. cc: Evert Merlos MD
[2018-08-19] MEDS: MORPHINE IV PRN ×3 (01:36→21:51)
[2018-08-19] MEDS: ZOSYN 3.375 GM in NS 50 ML IV SCH ×4 (01:37→21:51)
--- NOTE | 2018-08-19 03:42 | PULMONOLOGY PROGRESS NOTE ---
DATE: 08/18/2018 SUBJECTIVE: The patient is awake, alert, and conversant. She denies shortness of breath. She does have some pain with deep inspiration. OBJECTIVE: HEENT: Pupils are equal and reactive. Oropharynx is clear. Neck: Supple. Chest: Reveals occasional rhonchi bilaterally. No air leak identified. Cardiac: S1, S2. Abdomen: Soft. Extremities: Without edema. LABORATORIES: Chest x-ray reveals no pneumothorax that I can appreciate. Decreased infiltrates in the left mid lung zone. Microbiology reveals Klebsiella pneumoniae, which is sensitive to aminoglycosides, Zosyn, Bactrim, Levaquin, ampicillin, sulbactam, and cefazolin. IMPRESSION: A 42-year-old with 1. Sarcoidosis. 2. Acute hypoxemic respiratory failure. 3. Spontaneous pneumothorax. 4. Bronchiectasis with gram-negative organism identified in sputum. PLAN: 1. Agree with chest tube to water seal today. 2. Consider removal of chest tube tomorrow if she continues to do well. 3. Continue current antibiotic regimen. It is recommended that the patient receive a 2 week course of antibiotics at the time of discharge given her known bronchiectasis. This could be with Augmentin or a quinolone. 4. Anticipate discharge soon if she continues to do well. cc: Moody Hope MD
[2018-08-19 06:34] LABS: BASO# 0.04 X1000 (0.0-0.2); BASO% 0.9 % (0.0-0.8); EOS% 11.7 % (0.0-10.0); IMM GRAN# 0.02 X1000 (0.0-0.04); IMM GRAN% 0.5 % (0.0-0.5); LYMPH# 1.14 X1000 (1.2-3.4); LYMPH% 26.6 % (20.5-51.1); MCH 27.6 PG (27-31); MCHC 30.8 g/dL (33-37); MCV 89.7 FL (81-99); MONO# 0.42 X1000 (0.11-0.59); MONO% 9.8 % (1.7-9.3); MPV 10.6 FL (7.4-10.4); NEUT# 2.16 X1000 (1.4-6.5); NEUT% 50.5 % (42.2-75.2); PLT 210 X1000 (130-400); RBC 4.35 XMIL (4.2-5.4); WBC 4.28 X1000 (4.8-10.8)
[2018-08-19 07:11] LABS: AGAP 9; ALB/GLOB RATIO 0.6; ALBUMIN 2.9 g/dL (3.5-5.0); ALKALINE PHOSPHATASE 374 U/L (32-104); BUN 10 mg/dL (8-22); CALCIUM 8.4 mg/dL (8.8-10.2); CHLORIDE 100 mmol/L (98-107); COSMO 271; CREATININE 0.7 mg/dL (0.5-0.9); ESTIMATED GFR > 60; GLUCOSE 92 mg/dL (70-104); GOT 78 U/L (10-30); GPT 73 U/L (10-36); POTASSIUM 4.3 mmol/L (3.5-5.1); SODIUM 136 mmol/L (136-145); TCO2 27 mmol/L (25-35); TOTAL BILIRUBIN 0.91 mg/dL (0.20-1.00); TOTAL PROTEIN 7.4 g/dL (6.3-8.3)
--- NOTE | 2018-08-19 07:34 | Diag Imaging Result Doc PS360 ---
EXAM: CHEST-PORTABLE INDICATION: pneumothorax TECHNIQUE: One view COMPARISON: 08/18/2018 FINDINGS: The left chest tube is in stable position. No residual pneumothorax can be identified by plain radiograph. Bilateral patchy infiltrates are unchanged. No new consolidation is identified. Cardiac silhouette is stable. IMPRESSION: Stable chest. Electronically signed by Ervin Phillips 08/19/2018 7:31 AM
[2018-08-19] MEDS: MIRALAX PO SCH ×2 (08:18→21:51)
[2018-08-19] MEDS: COLACE PO SCH ×2 (08:18→21:50)
[2018-08-19] MEDS: LACTULOSE PO SCH ×2 (08:18→21:51)
[2018-08-19] MEDS: DUONEB (A & A) INH SCH ×5 (08:30→23:32)
[2018-08-19 12:28] LABS: HEPATITIS PROFILE ACUTE SEE COMMENTS
--- NOTE | 2018-08-19 14:07 | PROGRESS NOTE ---
DATE: 08/19/2018 SUBJECTIVE: The patient is resting comfortably in bed. He is not in any obvious distress. OBJECTIVE: Temperature 98.4 degrees, pulse 86, respirations 14, blood pressure is 116/76, and oxygen saturation 97%. HEENT: Atraumatic and normocephalic. Cardiovascular: S1, S2. Respiratory: There is evidence of good air entry bilaterally. Abdomen: Soft, nontender. No masses felt. Extremities: No evidence of edema. Central nervous system: No evidence of obvious focal deficits noted. LABORATORY: WBC is 4.28. Hematocrit is 39. Platelet count is 210,000. Sodium is 136, potassium 4.3, chloride 100, bicarb 27, BUN is 18, ASSESSMENT AND PLAN: 1. Spontaneous left pneumothorax. Left chest tube in place. Surgery managing. 2. Pneumonia. Continue current antibiotic regimen. Maintain patient on supplemental oxygen as well as nebulized bronchodilator as needed. 3. Sarcoidosis: Aware. 4. Abnormal liver function tests. Hepatitis panel, ADWOA level 1. Abdominal ultrasound has already returned back negative. We will initiate further hepatic workup to determine etiology of abnormal liver function test. May be related to sarcoidosis. 5. Deep vein thrombosis prophylaxis. Lovenox. cc: Dutch Galindo MD [facility]
[2018-08-19] MEDS: LOVENOX SUBQ SCH (14:14)
--- NOTE | 2018-08-19 21:47 | GENERAL SURGERY PROGRESS NOTE ---
DATE: 08/19/2018 SUBJECTIVE: Doing well. No respiratory complaints. No fevers. No tachycardia. I reviewed her labs. I reviewed her x-ray. Her x-ray shows no residual pneumothorax, no subcutaneous air. OBJECTIVE: On exam, her left chest tube is in place. There is no air leak. She is alert. Cardiovascular normal rate. She is on room air from a pulmonary standpoint. ASSESSMENT AND PLAN: A 42-year-old female with spontaneous left pneumothorax. It has remained expanded, water sealed now for 24 hours. Will keep it another 24 and plan on removing tomorrow. cc: Evert Merlos MD
[2018-08-20] MEDS: ZOSYN 3.375 GM in NS 50 ML IV SCH ×4 (01:43→21:27)
--- NOTE | 2018-08-20 03:08 | PULMONOLOGY PROGRESS NOTE ---
DATE: 08/19/2018 SUBJECTIVE: The patient is awake, alert, and conversant. She is without specific complaints. She reports Dr. Sotero Merlos anticipates removal of chest tube tomorrow. OBJECTIVE: Vital Signs: The patient has been afebrile for the last 24 hours. Blood pressure 121/80, heart rate 99, respiratory rate 16, oxygen saturation 100% on room air. HEENT: Pupils are equal and reactive. Oropharynx is clear. Neck: Supple. Chest: Reveals diminished breath sounds both bases. Chest tube in the left chest. Cardiac: S1, S2. Abdomen: Soft. Extremities: Without edema. LABORATORIES: Chest x-ray reveals stable bilateral bibasilar infiltrates. Microbiology obtained 08/15/2018 reveals Klebsiella pneumonia. IMPRESSION: A 42-year-old with 1. Spontaneous pneumothorax. 2. Acute hypoxemic respiratory failure. 3. Exacerbation of bronchiectasis with gram-negative organism in sputum. 4. Sarcoidosis with chronic radiographic findings. RECOMMENDATIONS: 1. Anticipate chest tube removal soon. 2. Continue antibiotic regimen. Recommend the patient be discharged on a 2 week course of oral antibiotics given bronchiectasis. 3. Anticipate discharge soon. cc: Moody Hope MD
--- NOTE | 2018-08-20 06:44 | Diag Imaging Result Doc PS360 ---
CHEST-PORTABLE - 08/20/2018 INDICATION: pneumothorax COMPARISON: 08/19/2018 FINDINGS: Stable left basilar chest tube in good position. Stable dense infiltrates bilaterally. Heart size and pulmonary vascularity remains somewhat enlarged. No new infiltrates. No pneumothorax. There may be a small right pleural effusion. IMPRESSION: No change from prior. Electronically signed by Francisco J Posey 08/20/2018 6:42 AM
[2018-08-20] MEDS: DUONEB (A & A) INH SCH ×5 (07:22→22:46)
[2018-08-20] MEDS: LACTULOSE PO SCH (08:34)
[2018-08-20] MEDS: COLACE PO SCH ×2 (08:34→21:27)
[2018-08-20] MEDS: MIRALAX PO SCH (08:34)
--- NOTE | 2018-08-20 08:43 | GENERAL SURGERY PROGRESS NOTE ---
DATE: 08/20/2018 SUBJECTIVE: Patient seems to be doing okay. She is breathing okay, not having any major issues. Chest tube has been to water seal for now approximately 48 hours. OBJECTIVE: Vital Signs: Patient is currently afebrile. Her vital signs are stable. General exam: No acute distress. HEENT: Normocephalic, atraumatic. Pupils equal, round, react to light. Mucous membranes moist. Oropharynx benign. Neck: Supple. Trachea midline. Cardiovascular: Regular rate and rhythm. Lungs: Bilateral breath sounds noted. No obvious air leak to the chest tube on the left side. Abdomen: Soft, nontender, nondistended. Extremities: Moves all extremities. Neurologic: Grossly intact. Skin: No signs of jaundice. Vascular: All extremities perfused. LABORATORY: Reviewed from yesterday. X-RAY: Chest x-ray reviewed from yesterday. This morning's one is pending. ASSESSMENT AND PLAN: A 42-year-old female with spontaneous left-sided pneumothorax. 1. Left-sided pneumothorax. At this time output has been minimal, but would like to see what her chest x-ray looks like this morning prior to pulling it. If it looks like it is still resolved as far as pneumothorax is concerned, we will come by later this afternoon and pull the chest tube. cc: Je Maldonado MD
[2018-08-20] MEDS: MORPHINE IV PRN ×2 (12:21→21:27)
--- NOTE | 2018-08-20 12:28 | PROGRESS NOTE ---
DATE: 08/20/2018 SUBJECTIVE: Patient is awake, not in any obvious distress. OBJECTIVE: Vital Signs: As follows: Temperature 98.3, pulse 92, respiratory rate is 16, blood pressure is 116/70, oxygen saturation is 94%. HEENT: Atraumatic, normocephalic. Cardiovascular: S1, S2. Respiratory: Has evidence of good air entry bilaterally. Abdomen: Soft, nontender. No masses felt. Extremities: No evidence of edema. Central Nervous System: No obvious focal deficits noted. LABS: None. X-ray of the chest shows stable dense infiltrates bilaterally. No pneumothorax. There is a small right pleural effusion. ASSESSMENT AND PLAN: 1. Spontaneous left pneumothorax. Left chest tube in place. Surgery following. 2. Pneumonia. Continue current antibiotic regimen. Maintain patient on supplemental oxygen as well as nebulized bronchodilators as needed. 3. Sarcoidosis. Aware. 4. Abnormal liver function test. Follow up on further hepatic workup. 5. DVT prophylaxis. Lovenox. cc: Dutch Galindo MD [facility]TD[facility]
[2018-08-20] MEDS: LOVENOX SUBQ SCH (15:17)
--- NOTE | 2018-08-20 16:07 | Diag Imaging Result Doc PS360 ---
EXAM: CHEST-2 VIEWS 08/20/2018 HISTORY: chest tube removed TECHNIQUE: PA and lateral chest COMMENT: Compared to the previous study of 08/20/2018, the left chest tube is been removed. There is a small residual apical pneumothorax measuring almost 7 mm. This was not appreciable on the previous study. There is patchy alveolar opacity bilaterally. There are bilateral pleural fluid collections. The lungs are actually better expanded than they were on the previous examination of this date. IMPRESSION: Recurrent small left pneumothorax. Bilateral alveolar opacities similar to previous studies. The findings were discussed with Je Maldonado MD at 08/20/2018 4:05 PM. Electronically signed by Orlin Stiles 08/20/2018 4:05 PM
--- NOTE | 2018-08-20 19:00 | GENERAL SURGERY PROGRESS NOTE ---
DATE: 08/20/2018 Reviewed chest x-ray from this morning. No obvious pneumothorax. I came to the bedside, pulled the chest tube out, placed an occlusive dressing. The patient tolerated the procedure well. We will get a chest x-ray later today approximately 3 to 4 hours after the pull to see how everything is holding up. If she has a re-accumulation, may need to make consideration for repeat chest tube. cc: Je Maldonado MD
--- NOTE | 2018-08-20 23:32 | GENERAL SURGERY PROGRESS NOTE ---
DATE: 08/20/2018 ASSESSMENT AND PLAN: Chest x-ray post chest tube pull shows a small pneumothorax. We will monitor. We will place on 2 L nasal cannula. We will repeat a chest x-ray in the morning. cc: Je Maldonado MD
[2018-08-21] MEDS: LACTULOSE PO SCH ×2 (02:23→08:37)
[2018-08-21] MEDS: MIRALAX PO SCH ×2 (02:24→08:31)
[2018-08-21] MEDS: ZOSYN 3.375 GM in NS 50 ML IV SCH ×3 (03:37→14:02)
--- NOTE | 2018-08-21 06:53 | Diag Imaging Result Doc PS360 ---
CHEST-1 VIEW - 08/21/2018 INDICATION: pneumothorax COMPARISON: 08/20/2018 FINDINGS: Stable dense bilateral infiltrates in the midlungs and bases. Stable small bilateral pleural effusions. Heart size remains normal. No pneumothorax. IMPRESSION: No pneumothorax visible. Electronically signed by Francisco J Posey 08/21/2018 6:50 AM
[2018-08-21 06:57] LABS: BASO# 0.04 X1000 (0.0-0.2); BASO% 0.8 % (0.0-0.8); EOS# 0.58 X1000 (0.0-0.7); EOS% 11.5 % (0.0-10.0); HEMATOCRIT 36.8 % (37.0-47.0); HEMOGLOBIN 11.6 g/dL (12.0-16.0); IMM GRAN# 0.02 X1000 (0.0-0.04); IMM GRAN% 0.4 % (0.0-0.5); LYMPH# 1.18 X1000 (1.2-3.4); LYMPH% 23.4 % (20.5-51.1); MCH 27.8 PG (27-31); MCHC 31.5 g/dL (33-37); MCV 88.2 FL (81-99); MONO# 0.62 X1000 (0.11-0.59); MONO% 12.3 % (1.7-9.3); MPV 10.3 FL (7.4-10.4); NEUT# 2.61 X1000 (1.4-6.5); NEUT% 51.6 % (42.2-75.2); PLT 208 X1000 (130-400); RBC 4.17 XMIL (4.2-5.4); RDW 14.9 % (11.5-14.5); WBC 5.05 X1000 (4.8-10.8)
[2018-08-21 07:03] LABS: AGAP 10; ALB/GLOB RATIO 0.8; ALBUMIN 3.2 g/dL (3.5-5.0); ALKALINE PHOSPHATASE 479 U/L (32-104); BUN 12 mg/dL (8-22); CALCIUM 8.6 mg/dL (8.8-10.2); CHLORIDE 101 mmol/L (98-107); COSMO 273; CREATININE 0.7 mg/dL (0.5-0.9); ESTIMATED GFR > 60; GLUCOSE 82 mg/dL (70-104); GOT 125 U/L (10-30); GPT 96 U/L (10-36); POTASSIUM 4.3 mmol/L (3.5-5.1); SODIUM 137 mmol/L (136-145); TCO2 26 mmol/L (25-35); TOTAL BILIRUBIN 0.83 mg/dL (0.20-1.00)
[2018-08-21] MEDS: DUONEB (A & A) INH SCH ×2 (08:00→11:08)
--- NOTE | 2018-08-21 08:07 | PULMONOLOGY PROGRESS NOTE ---
DATE: 08/20/2018 SUBJECTIVE: The patient is awake, alert, and conversant. She did have her chest tube removed earlier today. She continues to have occasional sputum production but otherwise is without complaints. OBJECTIVE: Vital Signs: The patient has been afebrile for the last 24 hours. Blood pressure 117/82, heart rate 93, respiratory rate 16, oxygen saturation 100% on room air. HEENT: Pupils are equal and reactive. Oropharynx is clear. Neck is supple. Chest: Reveals crackles at the left and right base. Cardiac Exam: S1-S2. Abdomen: Soft. Extremities: Without edema. LABORATORIES: Chest x-ray performed after chest tube removal today revealed a tiny left apical pneumothorax measuring 7 mm. Bilateral infiltrates are unchanged. IMPRESSION: A 42-year-old with: 1. Spontaneous pneumothorax. 2. Recurrent small pneumothorax following removal of chest tube. 3. Acute hypoxemic respiratory failure. 4. Exacerbation of bronchiectasis with gram-negative nuvia/Klebsiella pneumonia and sputum. 5. Sarcoidosis. DISCUSSION: A 42-year-old with problems outlined above. She has a tiny left apical pneumothorax with chest tube removed. If her chest x-ray is stable tomorrow, she could be discharged home. RECOMMENDATION: 1. Follow up chest x-ray tomorrow morning. 2. Continue bronchial hygiene. 3. Recommend 2 week course of an oral antibiotic at the time of discharge with follow-up chest x- ray in 3 weeks in my office. 4. Anticipate discharge tomorrow if stable. cc: Moody Hope MD
[2018-08-21] MEDS: COLACE PO SCH (08:31)
--- NOTE | 2018-08-21 10:32 | GENERAL SURGERY PROGRESS NOTE ---
DATE: 08/21/2018 SUBJECTIVE: Patient seems to be breathing well. OBJECTIVE: Vital Signs: Patient is currently afebrile. Her vital signs stable. General: No acute distress. HEENT: Normocephalic, atraumatic. Pupils equal, round, reactive to light. Mucous membranes moist. Oropharynx benign. Neck: Supple. Trachea midline. Cardiovascular: Regular rate and rhythm. Lungs: Equal breath sounds noted at this time to both sides. Abdomen: Soft, nontender, nondistended. Extremities: Moves all extremities. Neurologic: Grossly intact. Skin: No signs of jaundice. Vascular: All extremities perfused. LABORATORY: None. Chest x-rays from yesterday reviewed. ASSESSMENT AND PLAN: 42-year-old female status post spontaneous pneumothorax with reaccumulation after chest tube pull. 1. Left-sided pneumothorax. At this time, we will get a chest x-ray this morning. She is on supplemental oxygen. We will kind of monitor for right now. She has no extremis I think we can hold off on placing another chest tube. 2. Hopefully, we could look at discharging her soon. cc: Je Maldonado MD
[2018-08-21 15:25] VITALS: BP 118/70
--- NOTE | 2018-08-22 15:14 | DISCHARGE SUMMARY ---
ADMISSION DATE: 08/14/2018 DISCHARGE DATE: 08/21/2018 PRINCIPAL DIAGNOSIS: A spontaneous left pneumothorax. SECONDARY DIAGNOSES: 1. Sarcoidosis. 2. Elevated liver function tests. 3. Pneumonia. DISCHARGE MEDICATIONS: Levaquin 500 mg p.o. daily for 7 days. CONSULTATIONS DONE DURING THIS HOSPITAL STAY: 1. Dr. Sotero Merlos, General Surgery. 2. Dr. Moody Hope, Pulmonology. HOSPITAL COURSE: Ms. Ian Frausto is a 42-year-old female with a history of sarcoidosis, who presents to the hospital because of left-sided chest pain, as well as shortness of breath. X-ray of the chest showed evidence of a large pneumothorax on the left. The patient was seen by the surgical team and had left chest tube put in place. She was evaluated by the pulmonary team during the course of the hospital stay. The patient was treated for pneumonia as well. She did relatively well, and chest tube was subsequently removed. Repeat chest x-ray showed no pneumothorax. However, there was evidence of dense bilateral infiltrates in the mid lungs, as well as bases. EXAMINATION: Vital Signs: Vital signs are as follows: Temperature 97.5 degrees, pulse 95, respirations 20, blood pressure 120/77, oxygen saturation 96%. HEENT: Atraumatic, normocephalic. Cardiovascular system: S1, S2. Respiratory system: Has evidence of good air entry bilaterally. Abdomen: Soft, nontender. No masses felt. Extremities: No evidence of edema. Central nervous system: No focal deficit noted. LABS: WBC is 5.05, hematocrit 36.8, with a platelet count of 208. Sodium is 137, potassium 4.3, chloride is 101, bicarbonate 26. BUN is 12, creatinine 0.7. AST is 125, ALT is 96. PLAN: We will discharge patient home today on oral antibiotics. She will need to follow up with General Surgery , Pulmonology, as well as a primary care physician. cc: Dutch Galindo MD [facility]ITAL[facility]angelina
== END 2018-08-21 16:04 | disposition home or self-care (01) | DRG 199 ==
LOC: P.ED 18:01 → SUATTDRO 18:02 → 4N 23:27
PROVIDERS: ATTEND Internal Medicine
CPT/HCPCS: 71010; 71020; 71045; 71046; 74000; 74018; 76700; 80048; 80053; 80074; 80076; 82103; 82390; 82728; 83516; 84145; 85025; 85027; 85610; 85730; 86038; 86039; 87040; 87070; 87077; 87186; 87205; 93005; 94640; 94760; 94761; 94799; 96361; 96365; 96366; 96375; 96376; 99285; A9270; J0692; J1650; J1956; J2020; J2250; J2270; J2405; J2543; J7030